=== PATIENT | female | born 1990 | race American Indian/Alaskan Native ===

== ENCOUNTER 2016-08-24 00:14 | Emergency (ER) | payer MEDICAID, OTHER ==
[2016-08-24] MEDS ORDERED: PROVENTIL IH ONE ×2 (00:44→00:49)
[2016-08-24] MEDS ORDERED: ATROVENT IH ONE ×2 (00:44→00:49)
[2016-08-24] MEDS ORDERED: DUONEB 0.5 MG-3 MG/3 ML SOLN IH ONE ×3 (07:40→09:32)
[2016-08-24] MEDS ORDERED: DELTASONE PO ONE (07:42)
[2016-08-24] MEDS ORDERED: MAGNESIUM SULFATE 2GM/50ML 2 GM/50 ML BAG IV ONE (09:31)
[2016-08-24] MEDS ORDERED: VALIUM IV ONE (09:31)
[2016-08-24] MEDS ORDERED: DECADRON IV ONE (09:32)
--- NOTE | 2016-08-24 09:33 | Emergency Department Report ---
HPI - General Chief Complaint: Dyspnea/Respdistress Time Seen by Provider: 08/24/16 08:46 - HPI HPI: The patient's 26-year-old female who presents for evaluation of dyspnea. The patient has a history of asthma. The patient reports progressive and constant dyspnea since yesterday morning, 25 hours ago, severe since last night, and is exacerbated with lying flat, exertion, or physical activity. The patient denies fever, chest pain, CP, hemoptysis, unilateral leg swelling, oral contraceptive use, recent immobilization, history of DVT or PE, hx cancer. ED Past Medical Hx - Past Medical History Hx Hypertension: No Hx Heart Attack/AMI: No Hx Congestive Heart Failure: No Hx Diabetes: Yes (since age 15 (2007)) Hx Deep Vein Thrombosis: No Hx Liver Disease: No Hx Renal Disease: No Hx Sickle Cell Disease: No Hx Seizures: No Hx Asthma: Yes (last attack about 4 months ago) Hx COPD: No Hx HIV: No - Surgical History Past Surgical History?: Yes Additional Surgical History: - Social History Smoking Status: Current Every Day Smoker Substance Use Type: None - Medications Home Medications: Home Medications Medication Instructions Recorded Confirmed Last Taken Type ALBUTEROL Inhaler [ProAir HFA 2 puff IH QID PRN #1 inhalation 08/24/16 Unknown Rx Inhaler] Prednisone [predniSONE 10 mg 10 mg PO .TAPER #1 tab.ds.pk 08/24/16 Unknown Rx (6-Day Pack, 21 Tabs)] ED Review of Systems ROS: Stated complaint: DIFFICULTY BREATHING Other details as noted in HPI Constitutional: denies: fever ENT: denies: throat or neck pain Respiratory: reports shortness of breath Cardiovascular: denies: chest pain Endocrine: denies unexplained weight loss or gain Gastrointestinal: denies: abdominal pain, nausea Genitourinary: denies: dysuria Musculoskeletal: denies: leg swelling Skin: denies: rash Neurological: denies: headache Hematological/Lymphatic: denies: easy bleeding or easy bruising Psych: denies sadness or hopelessness Physical Exam - Physical Exam Vital Signs: Vital Signs 08/24/16 08/24/16 08/24/16 00:27 00:51 07:36 Temperature 98.4 F Pulse Rate 103 H 90 Pulse Rate [ 94 H Throughout] Respiratory 22 18 Rate Respiratory 20 Rate [ Throughout] Blood Pressure 109/75 Blood Pressure 120/76 [Right] O2 Sat by Pulse 99 100 Oximetry 08/24/16 08/24/16 08:12 08:15 Temperature Pulse Rate 74 Pulse Rate [ 93 H Throughout] Respiratory 18 Rate Respiratory 18 Rate [ Throughout] Blood Pressure Blood Pressure 110/67 [Right] O2 Sat by Pulse 98 Oximetry Physical Exam: General: well-nourished, well-developed, no acute distress Head: Normocephalic, atraumatic Eyes: normal sclera ENT: Mucous membranes are pink and moist Neck: trachea midline, neck supple, No neck stiffness, no cervical adenopathy Respiratory: Diminished breath sounds and wheezing present throughout lung robison bilaterally, no costal retractions, no respiratory distress Cardio: S1 and S2 present, no murmurs, rubs, gallops, capillary refill is brisk Abdomen: Normoactive bowel sounds, soft abdomen, no rigidity, no guarding or rebound tenderness Chest WALL/Back: No tenderness to palpation of the chest wall, no CVA tenderness with percussion Musc: No pitting edema Skin: No rash Neuro: no facial drooping, normal speech Psych: Normal affect ED Course Vital Signs 08/24/16 08/24/16 08/24/16 00:27 00:51 07:36 Temperature 98.4 F Pulse Rate 103 H 90 Pulse Rate [ 94 H Throughout] Respiratory 22 18 Rate Respiratory 20 Rate [ Throughout] Blood Pressure 109/75 Blood Pressure 120/76 [Right] O2 Sat by Pulse 99 100 Oximetry 08/24/16 08/24/16 08:12 08:15 Temperature Pulse Rate 74 Pulse Rate [ 93 H Throughout] Respiratory 18 Rate Respiratory 18 Rate [ Throughout] Blood Pressure Blood Pressure 110/67 [Right] O2 Sat by Pulse 98 Oximetry ED Medical Decision Making - Medical Decision Making The patient was seen and examined by myself. The patient is placed on a jewelry coater and continuous pulse ox. On initial evaluation, the patient was found to be in no distress. Evaluation orders were placed. The patient is given multiple duoneb breathing treatments, IV magnesium, and IV Decadron for treatment of asthma. The patient was reevaluated and reported that their symptoms were improved. On reexamination the patient is found to have normal respiratory rate, O2 sat on pulse oximetry, with no costal retractions, and minimal wheezing on auscultation. The patient is stable for discharge with outpatient follow-up. The patient is given follow-up and return instructions. The patient expressed understanding and agreed with the plan. The patient is discharged in stable condition. Critical care attestation.: If time is entered above; I have spent that time in minutes in the direct care of this critically ill patient, excluding procedure time. ED Disposition Clinical Impression: Asthma with acute exacerbation in adult Disposition: DISCHARGED TO HOME OR SELFCARE Is pt being admited?: No Does the pt Need Aspirin: No Condition: Stable Instructions: Asthma (ED) Prescriptions: ALBUTEROL Inhaler [ProAir HFA Inhaler] 2 puff IH QID PRN #1 inhalation PRN Reason: Shortness Of Breath Prednisone [predniSONE 10 mg (6-Day Pack, 21 Tabs)] 10 mg PO .TAPER #1 tab.all Referrals: PRIMARY CARE, [Primary Care Provider] - 3-5 Days Time of Disposition: 09:33
[2016-08-24 13:02] VITALS: BP 110/63
== END 2016-08-24 10:28 | disposition home or self-care (01) ==
LOC: ED 00:14
DX: J45.901 Unspecified asthma with (acute) exacerbation (principal); E11.9 Type 2 diabetes mellitus without complications; J45.909 Unspecified asthma, uncomplicated; F17.200 Nicotine dependence, unspecified, uncomplicated
CPT/HCPCS: 94640; 96365; 96375; 99284; J1100; J3360; J3475; J7512

== ENCOUNTER 2017-11-02 22:39 | Emergency (ER) | payer OTHER ==
[2017-11-03 00:31] VITALS: BP 119/70
[2017-11-03] MEDS ORDERED: PROVENTIL IH ONE ×2 (00:31→00:34)
--- NOTE | 2017-11-03 01:36 | XRay Report ---
FINAL REPORT EXAM: XR CHEST ROUTINE 2V HISTORY: Shortness of breath TECHNIQUE: PA and lateral views of the chest were submitted. FINDINGS: The heart size and mediastinum appear normal. The lungs are clear. Pleural fluid is not seen. The bones soft tissues do not show any acute changes. IMPRESSION: No active chest disease.
[2017-11-03 01:42] LABS: Hemoglobin 9.6 gm/dl (10.1-14.3); Red Blood Count 5.23 M/mm3 (3.65-5.03)
[2017-11-03 01:43] LABS: Mean Corpuscular Hemoglobin 18 pg (28-32); Mean Corpuscular Volume 64 fl (79-97)
[2017-11-03 01:44] LABS: Mean Corpuscular HGB Conc 29 % (30-34); Platelet Count 245 K/mm3 (140-440); Red Cell Distribution Width 18.7 % (13.2-15.2)
[2017-11-03 01:50] LABS: BUN/Creatinine Ratio 20; Blood Urea Nitrogen 14 mg/dL (7-17); Hemolysis Index 16
[2017-11-03] MEDS ORDERED: NORCO 5/325 PO ONE (03:20)
[2017-11-03] MEDS ORDERED: DELTASONE PO ONE (03:21)
--- NOTE | 2017-11-03 03:26 | Emergency Department Report ---
ED Chest Pain HPI - General Chief Complaint: Adult Asthma Stated Complaint: NANETTE Time Seen by Provider: 11/03/17 03:02 Source: patient Mode of arrival: Stretcher Limitations: No Limitations - History of Present Illness Initial Comments: Ms. Villela is a 27-year-old female with history of asthma. Since she has had sharp stabbing chest pain. Chest pain became worse after running from a pit bull in her neighborhood. Chest pain has been present for a total of 12+ hours. Sharp stabbing central chest pain. No change with movement or inspiration. No fever. No wheezing. No cough. She uses an inhaler without any relief. Gradual onset of chest pain. Has been persistent. No tobacco abuse. No use of oral contraceptives. - Related Data Previous Rx's Medication Instructions Recorded Last Taken Type ALBUTEROL Inhaler [ProAir HFA 2 puff IH QID PRN #1 inhalation 08/24/16 Unknown Rx Inhaler] Prednisone [predniSONE 10 mg 10 mg PO .TAPER #1 tab.ds.pk 08/24/16 Unknown Rx (6-Day Pack, 21 Tabs)] ALBUTEROL Inhaler [ProAir HFA 2 puff IH QID PRN #1 inhalation 11/03/17 Unknown Rx Inhaler] HYDROcodone/APAP 5-325 [[place] 1 each PO Q6HR PRN #10 tablet 11/03/17 Unknown Rx 5/325] Prednisone [predniSONE 10 mg 10 mg PO .TAPER #1 tab.ds.pk 11/03/17 Unknown Rx (6-Day Pack, 21 Tabs)] Allergies Allergy/AdvReac Type Severity Reaction Status Date / Time codeine Allergy Hives Verified 01/31/15 19:38 Heart Score - HEART Score History: Slightly suspicious EKG: Normal Age: < 45 Risk factors: No known risk factors Troponin: < normal limit HEART Score: 0 ED Review of Systems ROS: Stated complaint: NANETTE Other details as noted in HPI Comment: All other systems reviewed and negative Constitutional: denies: fever, malaise Respiratory: denies: cough Cardiovascular: chest pain ED Past Medical Hx - Past Medical History Hx Hypertension: No Hx Heart Attack/AMI: No Hx Congestive Heart Failure: No Hx Diabetes: Yes (since age 15 (2007)) Hx Deep Vein Thrombosis: No Hx Liver Disease: No Hx Renal Disease: No Hx Sickle Cell Disease: No Hx Seizures: No Hx Asthma: Yes (last attack about 4 months ago) Hx COPD: No Hx HIV: No - Surgical History Additional Surgical History: , Ectopic - Social History Smoking Status: Never Smoker Substance Use Type: None - Medications Home Medications: Home Medications Medication Instructions Recorded Confirmed Last Taken Type ALBUTEROL Inhaler [ProAir HFA 2 puff IH QID PRN #1 inhalation 08/24/16 Unknown Rx Inhaler] Prednisone [predniSONE 10 mg 10 mg PO .TAPER #1 tab.ds.pk 08/24/16 Unknown Rx (6-Day Pack, 21 Tabs)] ALBUTEROL Inhaler [ProAir HFA 2 puff IH QID PRN #1 inhalation 11/03/17 Unknown Rx Inhaler] HYDROcodone/APAP 5-325 [[place] 1 each PO Q6HR PRN #10 tablet 11/03/17 Unknown Rx 5/325] Prednisone [predniSONE 10 mg 10 mg PO .TAPER #1 tab.ds.pk 11/03/17 Unknown Rx (6-Day Pack, 21 Tabs)] ED Physical Exam - General Limitations: No Limitations General appearance: alert, in no apparent distress - Head Head exam: Present: atraumatic, normocephalic - Eye Eye exam: Present: normal appearance - ENT ENT exam: Present: mucous membranes moist - Neck Neck exam: Present: normal inspection - Respiratory Respiratory exam: Present: normal lung sounds bilaterally. Absent: respiratory distress, wheezes, rales, rhonchi - Cardiovascular Cardiovascular Exam: Present: regular rate, normal rhythm, normal heart sounds. Absent: systolic murmur, diastolic murmur, rubs, gallop - GI/Abdominal GI/Abdominal exam: Present: soft, normal bowel sounds. Absent: distended, tenderness, guarding, rebound (patient appears comfortable laying on her left side.) - Extremities Exam Extremities exam: Present: normal inspection - Back Exam Back exam: Present: normal inspection - Neurological Exam Neurological exam: Present: alert, oriented X3 - Psychiatric Psychiatric exam: Present: normal affect, normal mood - Skin Skin exam: Present: warm, dry, intact, normal color. Absent: rash ED Course Vital Signs 11/03/17 00:23 Temperature 97.5 F L Pulse Rate 75 Respiratory 18 Rate Blood Pressure 119/70 O2 Sat by Pulse 100 Oximetry ED Medical Decision Making - Lab Data Result diagrams: 11/03/17 01:09 11/03/17 01:09 Laboratory Results - last 24 hr 11/03/17 11/03/17 11/03/17 01:09 01:09 01:09 WBC 7.6 RBC 5.23 H Hgb 9.6 L Hct 32.0 MCV 64 L MCH 18 L MCHC 29 L RDW 18.7 H Plt Count 245 Sodium 140 Potassium 3.6 Chloride 101.3 Carbon Dioxide 23 Anion Gap 19 BUN 14 Creatinine 0.7 Estimated GFR > 60 BUN/Creatinine Ratio 20 Glucose 104 H Calcium 9.0 Troponin T < 0.010 HCG, Qual Negative Vital Signs - 24 hr 11/03/17 00:23 Temperature 97.5 F L Pulse Rate 75 Respiratory 18 Rate Blood Pressure 119/70 O2 Sat by Pulse 100 Oximetry - Radiology Data Radiology results: report reviewed - Medical Decision Making Ms. Villela presents with chest pain shortness of breath. She is PERC negative. No indication of pericarditis. No indication for pneumothorax. I suspect acute asthma exacerbation is causing pain. Prescribed albuterol prednisone [place]. She was given return precautions. EKG interpretation NSR nl rate nl axis nl intervals no ST-T signs of ischemia no ST elevation time obtained 2224 rate 80 beats a minute Critical care attestation.: If time is entered above; I have spent that time in minutes in the direct care of this critically ill patient, excluding procedure time. ED Disposition Clinical Impression: Acute asthma exacerbation, Chest pain Disposition: - TO HOME OR SELFCARE Is pt being admited?: No Does the pt Need Aspirin: No Condition: Stable Instructions: Chest Pain (ED), Asthma (ED) Prescriptions: ALBUTEROL Inhaler [ProAir HFA Inhaler] 2 puff IH QID PRN #1 inhalation PRN Reason: Shortness Of Breath HYDROcodone/APAP 5-325 [[place] 5/325] 1 each PO Q6HR PRN #10 tablet PRN Reason: Pain Prednisone [predniSONE 10 mg (6-Day Pack, 21 Tabs)] 10 mg PO .TAPER #1 tab.ds.pk Referrals: [facility] [Outside] - 3-5 Days Forms: Work/School Release Form(ED) Time of Disposition: 03:29
[2017-11-03 03:54] LABS: Anisocytosis 1+; Band Neutrophils # (Manual) 0.4 K/mm3; Basophils % (Manual) 0 % (0.0-1.8); Eosinophils % (Manual) 0 % (0.0-4.3); Hypochromasia 2+; Ovalocytes 1+; Total Cells Counted 100
[2017-11-03 03:55] LABS: Tear Drop Cells Few
== END 2017-11-03 03:49 | disposition home or self-care (01) ==
LOC: ED 22:39
DX: J45.901 Unspecified asthma with (acute) exacerbation (principal); R07.89 Other chest pain; Z88.5 Allergy status to narcotic agent
CPT/HCPCS: 36415; 71046; 80048; 84484; 84703; 85007; 85025; 93005; 93010; 99284; J7512

== ENCOUNTER 2018-01-06 10:10 | Emergency (ER) | payer OTHER ==
[2018-01-06 10:30] VITALS: BP 115/61
== END 2018-01-06 11:00 | disposition left against medical advice (07) ==
LOC: ED 10:10
DX: O26.891 Other specified pregnancy related conditions, first trimester (principal); R10.9 Unspecified abdominal pain; Z88.5 Allergy status to narcotic agent; J45.909 Unspecified asthma, uncomplicated; E11.9 Type 2 diabetes mellitus without complications; Z3A.13 13 weeks gestation of pregnancy; Z53.21 Procedure and treatment not carried out due to patient leaving prior to being seen by health care provider

== ENCOUNTER 2020-01-27 17:21 | Emergency (ER) | payer SELFPAY ==
[2020-01-27 18:36] VITALS: BP 124/74
== END 2020-01-27 20:02 | disposition left against medical advice (07) ==
LOC: ED 17:21
DX: R07.89 Other chest pain (principal); R06.02 Shortness of breath; Z53.21 Procedure and treatment not carried out due to patient leaving prior to being seen by health care provider

== ENCOUNTER 2020-03-10 04:51 | Emergency (ER) | payer SELFPAY ==
[2020-03-10 06:15] LABS: Hematocrit 24.9 % (30.3-42.9); Hemoglobin 8.1 gm/dl (10.1-14.3); Mean Corpuscular Volume 64 fl (79-97)
[2020-03-10 06:16] LABS: Mean Corpuscular HGB Conc 33 % (30-34); Platelet Count 221 K/mm3 (140-440); Red Cell Distribution Width 19.9 % (13.2-15.2)
[2020-03-10 06:22] LABS: BUN/Creatinine Ratio 7; Blood Urea Nitrogen 6 mg/dL (7-17); Calcium 9.1 mg/dL (8.4-10.2); Hemolysis Index 0
[2020-03-10 06:23] LABS: INR 1.04 (0.87-1.13)
[2020-03-10 06:29] LABS: Partial Thromboplastin Time 25.2 Sec. (24.2-36.6)
[2020-03-10] MEDS ORDERED: SODIUM CHLORIDE 0.9% 1000 ML 1,000 ML IV ONE ×2 (06:52→08:14)
--- NOTE | 2020-03-10 06:56 | Emergency Department Report ---
ED Chest Pain HPI - General Chief Complaint: Chest Pain Stated Complaint: CP Time Seen by Provider: 03/10/20 06:27 Source: patient, EMS Mode of arrival: Stretcher Limitations: No Limitations - History of Present Illness Initial Comments: This is a 29-year-old -[place] female presents to the emergency department with complaint of midsternal chest tightness and shortness of breath that started about 30 minutes to 1 hour prior to arrival. The patient says that she was sitting on her bed when the symptoms began. She denies any fever, nausea, vomiting, coughing, wheezing. The chest tightness is nonradiating. It is worse with inhalation and with touching her chest. The patient was recently diagnosed with a DVT in the right leg and says that she is on Coumadin and has been compliant with her medication. Her primary care physician is Dr. Melchor. She denies any tobacco or illicit drug use. She denies any other past medical history but appears to have a history of anemia. She has not taken anything for symptoms prior to presentation today. - Related Data Home Medications Medication Instructions Recorded Confirmed Last Taken Insulin NPH Human Isophane 14 units SQ QHS 07/03/18 07/03/18 07/02/18 21:15 [Humulin N] Insulin Regular, Human [Humulin R] 10 units SQ QAMDIAB 07/03/18 07/03/18 08:30 Pnv No.95/Ferrous Fum/Folic AC 1 tab PO QDAY 07/03/18 07/03/18 07/02/18 08:00 [ Vitamins Tablet] Previous Rx's Medication Instructions Recorded Last Taken Type Albuterol Mdi (or & Nicu Only) 2 puff IH QID PRN #1 inhalation 08/24/16 4 Months Ago Rx [ProAir HFA Inhaler] ~03/03/18 Ferrous Sulfate [Feosol 325 MG tab] 325 mg PO BID #60 tablet 07/03/18 Unknown Rx HYDROcodone/APAP 5-325 [[place] 1 each PO Q6HR PRN #30 tablet 07/03/18 Unknown Rx 5/325] Ibuprofen [Motrin] 800 mg PO Q8HR PRN #30 tablet 07/03/18 Unknown Rx Pnv No.95/Ferrous Fum/Folic AC 1 each PO DAILY #30 tablet 07/03/18 Unknown Rx [Prenavite Tablet] Sennosides/Docusate [Senokot S] 1 each PO Q12HR #14 tab 07/10/18 Unknown Rx Apixaban [Eliquis starter pack] 5 mg PO BID #74 tab.ds.pk 03/10/20 Unknown Rx Allergies Allergy/AdvReac Type Severity Reaction Status Date / Time codeine Allergy Hives Verified 01/31/15 19:38 Heart Score - HEART Score History: Slightly suspicious EKG: Normal Age: < 45 Risk factors: 1-2 risk factors Troponin: < normal limit HEART Score: 1 - Critical Actions Critical Actions: 0-3 pts:0.9-1.7%risk of adverse cardiac event.Candidate for discharge ED Review of Systems ROS: Stated complaint: CP Other details as noted in HPI Comment: All other systems reviewed and negative Constitutional: denies: chills, fever Eyes: denies: eye pain, vision change ENT: denies: ear pain, throat pain Respiratory: shortness of breath. denies: cough Cardiovascular: chest pain. denies: palpitations Gastrointestinal: denies: abdominal pain, vomiting Genitourinary: denies: dysuria, discharge Musculoskeletal: denies: back pain, arthralgia Skin: denies: rash, lesions Neurological: denies: headache, weakness ED Past Medical Hx - Past Medical History Previous Medical History?: Yes Hx Hypertension: No Hx Heart Attack/AMI: No Hx Congestive Heart Failure: No Hx Diabetes: Yes Hx Deep Vein Thrombosis: Yes (right knee) Hx Liver Disease: No Hx Renal Disease: No Hx Sickle Cell Disease: No Hx Seizures: No Hx Asthma: Yes (more seasonal) Hx COPD: No Hx HIV: No Additional medical history: anemia - Surgical History Past Surgical History?: Yes Additional Surgical History: x2. , Ectopic - Social History Smoking Status: Never Smoker Substance Use Type: None - Medications Home Medications: Home Medications Medication Instructions Recorded Confirmed Last Taken Type Albuterol Mdi (or & Nicu Only) 2 puff IH QID PRN #1 inhalation 08/24/16 07/03/18 4 Months Ago Rx [ProAir HFA Inhaler] ~03/03/18 Ferrous Sulfate [Feosol 325 MG tab] 325 mg PO BID #60 tablet 07/03/18 Unknown Rx HYDROcodone/APAP 5-325 [[place] 1 each PO Q6HR PRN #30 tablet 07/03/18 Unknown Rx 5/325] Ibuprofen [Motrin] 800 mg PO Q8HR PRN #30 tablet 07/03/18 Unknown Rx Insulin NPH Human Isophane 14 units SQ QHS 07/03/18 07/03/18 07/02/18 21:15 History [Humulin N] Insulin Regular, Human [Humulin R] 10 units SQ QAMDIAB 07/03/18 07/03/18 07/02/18 08:30 History Pnv No.95/Ferrous Fum/Folic AC 1 tab PO QDAY 07/03/18 07/03/18 07/02/18 08:00 History [ Vitamins Tablet] Pnv No.95/Ferrous Fum/Folic AC 1 each PO DAILY #30 tablet 07/03/18 Unknown Rx [Prenavite Tablet] Sennosides/Docusate [Senokot S] 1 each PO Q12HR #14 tab 07/10/18 Unknown Rx Apixaban [Eliquis starter pack] 5 mg PO BID #74 tab.ds.pk 03/10/20 Unknown Rx ED Physical Exam - General Limitations: No Limitations - Other Other exam information: GENERAL: The patient is well-developed well-nourished. HENT: Normocephalic. Atraumatic. Patient has moist mucous membranes. EYES: Extraocular motions are intact. NECK: Supple. Trachea is midline. CHEST/LUNGS: Clear to auscultation. There is no respiratory distress noted. There is some reproducible tenderness to palpation to the midsternal chest wall. No crepitus or deformity. HEART/CARDIOVASCULAR: Regular. There is no tachycardia. There is no murmur. ABDOMEN: Abdomen is soft, nontender. Patient has normal bowel sounds. Obese habitus. SKIN: Skin is warm and dry. NEURO: The patient is awake, alert, and oriented. The patient is cooperative. Normal speech. MUSCULOSKELETAL: There is no tenderness or deformity. There is no limitation range of motion. ED Course Vital Signs 03/10/20 03/10/20 03/10/20 05:10 05:15 05:30 Temperature 98.2 F 98.6 F Pulse Rate 96 H 96 H 95 H Respiratory 18 13 15 Rate Blood Pressure 109/71 105/61 Blood Pressure 104/71 [Left] O2 Sat by Pulse 99 99 98 Oximetry 03/10/20 03/10/20 03/10/20 06:00 06:30 07:00 Temperature Pulse Rate 127 H 80 78 Respiratory 14 18 17 Rate Blood Pressure 102/69 103/55 92/47 Blood Pressure [Left] O2 Sat by Pulse 100 96 Oximetry 03/10/20 03/10/20 07:15 07:30 Temperature Pulse Rate 72 77 Respiratory 16 17 Rate Blood Pressure 98/53 95/53 Blood Pressure [Left] O2 Sat by Pulse Oximetry TREVOR score - Trevor Score Age > 65: (0) No Aspirin use within the Past 7 Days: (0) No 3 or more CAD Risk Factors: (0) No 2 or more Angina events in past 24 hrs: (1) Yes Known CAD with more than 50% Stenosis: (0) No Elevated Cardiac Markers: (0) No ST Deviation Greater than 0.5mm: (0) No TREVOR Score: 1 ED Medical Decision Making - Lab Data Result diagrams: 03/10/20 05:29 03/10/20 05:29 - EKG Data -: EKG Interpreted by Ia EKG shows normal: sinus rhythm, axis, intervals, QRS complexes, ST-T waves Rate: normal - EKG Data When compared to previous EKG there are: previous EKG unavailable Interpretation: normal EKG - Radiology Data Radiology results: report reviewed CTA CHEST WITH CONTRAST INDICATION / CLINICAL INFORMATION: CP, hx of recent DVT, not anticoagulated. TECHNIQUE: Axial CT images were obtained through the chest after injection of IV contrast. 3 plane MIP and/or 3D reconstructions were produced. All CT scans at this location are performed using CT dose reduction for ALARA by means of automated exposure control. COMPARISON: Radiograph from earlier today. FINDINGS: PULMONARY ARTERIES: No pulmonary emboli. There is enlargement of the main pulmonary artery, which measures up to 3.4 cm in diameter. THORACIC AORTA: No significant abnormality. HEART: No significant abnormality. CORONARY ARTERIES: No significant calcification. MEDIASTINUM / ALEKSANDR: No significant abnormality. PLEURA: No pleural effusion. No pneumothorax. LUNGS: No acute air space or interstitial disease. ADDITIONAL FINDINGS: None. UPPER ABDOMEN: No acute findings. SKELETAL STRUCTURES: No significant osseous abnormality. IMPRESSION: 1. No CT evidence for pulmonary embolism. 2. Enlargement of the main pulmonary artery, measuring up to 3.4 cm in diameter. 3. No acute findings. - Medical Decision Making This patient presented to the emergency department with complaint of shortness of breath and some chest discomfort this morning while sitting on her bed. On examination heart and lungs are normal to auscultation and the patient does not appear in any respiratory or acute distress. EKG did not have any morphology consistent with ST elevation [place] or any dysrhythmia. Chest x-ray did not show any pneumonia, pleural effusions, pneumothorax, focal consolidation, or any other acute process. Patient's labs have been unremarkable including CBC, metabolic panel and negative troponins x2. However the patient is allegedly on Coumadin but has an INR of 1. With her recent diagnosis of DVT, the subtherapeutic INR, and current complaints of chest pain and shortness of breath, a CT angiography of the chest was performed. It resulted as negative for any pulmonary embolism or any other acute process. The patient was started on Eliquis instead of the Coumadin. She was given a coupon to make this medication cheaper for her for the first month. She was instructed to discontinue the Coumadin. She will follow-up with her primary care physician regarding anticoagulation and for general follow-up. Her contact information has been sent over to the [facility], and someone from their office should be contacting her shortly for close outpatient follow-up as per our hospitals low risk chest pain protocol. Critical Care Time: No Critical care attestation.: If time is entered above; I have spent that time in minutes in the direct care of this critically ill patient, excluding procedure time. ED Disposition Clinical Impression: Atypical chest pain, History of DVT (deep vein thrombosis), Subtherapeutic international normalized ratio (INR) Disposition: DC- TO HOME OR SELFCARE Is pt being admited?: No Condition: Stable Instructions: Apixaban (By mouth), Chest Pain (ED) Additional Instructions: Please follow-up with your primary care physician in the next few days regarding follow-up for your chest pain and regarding your anticoagulation. Since your Coumadin level was essentially negative despite alleged compliance, I am starting you on a different medication for anticoagulation for treatment of your recent DVT. This medication is taken at 10 mg by mouth twice daily for 7 days and then you begin taking 5 mg by mouth twice daily. I have given you a coupon to bring to the pharmacy to make this medication cheaper for you. With the Eliquis, as with Coumadin, this is a blood thinner and therefore you have increased risk of bleeding. Please try to take any possible precautions. Stop taking the Coumadin as you do not want to take both of these medications. I am sending your contact information to [facility], and someone from their office should be contacting you shortly for close outpatient follow-up regarding your chest pain. Return to the emergency department with any worsening of your symptoms or with any acute distress. Prescriptions: Apixaban [Eliquis starter pack] 5 mg PO BID #74 tab.ds.pk Referrals: [facility] [Provider Group] - 2-3 Days PRIMARY CARE,MD [Primary Care Provider] - 2-3 Days Time of Disposition: 09:54
[2020-03-10 07:02] LABS: Basophils % (Manual) 0 % (0.0-1.8); Eosinophils % (Manual) 0 % (0.0-4.3); Hypochromasia 2+; Total Cells Counted 100
[2020-03-10 07:03] LABS: Anisocytosis 1+; Ovalocytes 1+; Platelet Estimate Consistent w Auto
--- NOTE | 2020-03-10 07:05 | XRay Report ---
CHEST 1 VIEW INDICATION: Chest Pain. COMPARISON: 11/03/2017. FINDINGS: Support devices: None. Heart: Mild cardiac enlargement. Lungs/Pleura: No acute air space or interstitial disease. Additional findings: None. IMPRESSION: Mild cardiac enlargement. Signer Name: Dylan Liu MD Signed: 03/10/2020 7:00 AM Workstation Name: [email or web address]
[2020-03-10 07:06] LABS: Basophils # (Auto) 0.1 K/mm3 (0.0-0.1); Eosinophils % (Auto) 0.4 % (0.0-4.3); Monocytes # (Auto) 0.8 K/mm3 (0.0-0.8)
[2020-03-10 07:37] VITALS: BP 95/53
[2020-03-10] MEDS ORDERED: KETOROLAC 30 MG/1 ML INJ IV ONE (08:20)
[2020-03-10] MEDS ORDERED: diphenhydrAMINE 50 MG/ML VIAL IV ONE (08:42)
[2020-03-10] MEDS ORDERED: diphenhydrAMINE 50 MG/ML VIAL ONE (08:44)
--- NOTE | 2020-03-10 09:31 | Cat Scan Report ---
CTA CHEST WITH CONTRAST INDICATION / CLINICAL INFORMATION: CP, hx of recent DVT, not anticoagulated. TECHNIQUE: Axial CT images were obtained through the chest after injection of IV contrast. 3 plane MIP and/or 3D reconstructions were produced. All CT scans at this location are performed using CT dose reduction f or ALARA by means of automated exposure control. COMPARISON: Radiograph from earlier today. FINDINGS: PULMONARY ARTERIES: No pulmonary emboli. There is enlargement of the main pulmonary artery, which tomeka sures up to 3.4 cm in diameter. THORACIC AORTA: No significant abnormality. HEART: No significant abnormality. CORONARY ARTERIES: No significant calcification. MEDIASTINUM / ALEKSANDR: No significant abnormality. PLEURA: No pleural effusion. No pneumothorax. LUNGS: No acute air space or interstitial disease. ADDITIONAL FINDINGS: None. UPPER ABDOMEN: No acute findings. SKELETAL STRUCTURES: No significant osseous abnormality. IMPRESSION: 1. No CT evidence for pulmonary embolism. 2. Enlargement of the main pulmonary artery, measuring up to 3.4 cm in diameter. 3. No acute findings. Signer Name: Vaughn Dixon MD Signed: 03/10/2020 9:27 AM Workstation Name: [id number]
[2020-03-10] MEDS ORDERED: APIXABAN 5 MG TAB PO ONE (09:39)
== END 2020-03-10 10:53 | disposition home or self-care (01) ==
LOC: ED 04:51
DX: R07.89 Other chest pain (principal); R79.1 Abnormal coagulation profile; E11.9 Type 2 diabetes mellitus without complications; J45.909 Unspecified asthma, uncomplicated; D64.9 Anemia, unspecified; Z98.890 Other specified postprocedural states; Z88.6 Allergy status to analgesic agent; Z79.899 Other long term (current) drug therapy; Z86.718 Personal history of other venous thrombosis and embolism
CPT/HCPCS: 36415; 71045; 71275; 80048; 84484; 84703; 85007; 85025; 85610; 85730; 93005; 96361; 96374; 96375; 99285; J1200; J1885; J7030; Q9967

== ENCOUNTER 2020-03-10 20:31 | Emergency (ER) | payer MEDICAID ==
--- NOTE | 2020-03-10 21:53 | XRay Report ---
CHEST 2 VIEWS INDICATION / CLINICAL INFORMATION: Chest Pain. COMPARISON: Chest x-ray 03/10/2020 FINDINGS: SUPPORT DEVICES: None. HEART / MEDIASTINUM: No significant abnormality. LUNGS / PLEURA: No significant pulmonary or pleural abnormality. No pneumothorax. ADDITIONAL FINDINGS: No significant additional findings. IMPRESSION: 1. No acute findings. Signer Name: Timbo Sims MD Signed: 03/10/2020 9:49 PM Workstation Name: [id number]
[2020-03-10 22:00] LABS: Mean Corpuscular HGB Conc 28 % (30-34); Red Blood Count 4.77 M/mm3 (3.65-5.03)
[2020-03-10 22:12] LABS: Hematocrit 30.9 % (30.3-42.9); Hemoglobin 8.5 gm/dl (10.1-14.3); Mean Corpuscular Volume 65 fl (79-97); Platelet Count 306 K/mm3 (140-440); Red Cell Distribution Width 20.3 % (13.2-15.2)
[2020-03-10 22:20] LABS: BUN/Creatinine Ratio 7; Blood Urea Nitrogen 7 mg/dL (7-17); Calcium 8.6 mg/dL (8.4-10.2); Hemolysis Index 0
[2020-03-10 22:58] LABS: Basophils % (Manual) 0 % (0.0-1.8); Platelet Estimate Consistent w Auto; Total Cells Counted 100
[2020-03-10 22:59] LABS: Anisocytosis 2+; Hypochromasia 1+; Ovalocytes 1+; Tear Drop Cells Few
[2020-03-10] MEDS ORDERED: ONDANSETRON 4 MG ODT TAB PO ONE (23:45)
[2020-03-10] MEDS ORDERED: HYDROcodone/ACETAMINOPHEN 10-325MG TAB PO ONE (23:45)
--- NOTE | 2020-03-10 23:49 | Emergency Department Report ---
ED General Adult HPI - General Chief complaint: Chest Pain Stated complaint: CHEST PAIN Time Seen by Provider: 03/10/20 21:35 Source: patient Mode of arrival: Wheelchair Limitations: No Limitations - History of Present Illness Initial comments: The patient presents to the emergency department the chief complaint of chest pain that started yesterday. Patient states she presented to this hospital yesterday was evaluated for chest pain and was sent home with Eliquis for DVT that was located in her left leg. Patient states that she was diagnosed with a DVT a week ago at [facility] and was started on Xarelto. Patient does endorse shortness of breath but denies abdominal pain. Patient states she was given Eliquis tablet this morning before being discharged. The patient states the chest pain is so intense she nearly passed out. -: Sudden Location: chest Radiation: non-radiation Severity scale (0 -10): 5 Quality: aching Consistency: constant Improves with: none Worsens with: none Associated Symptoms: denies other symptoms Treatments Prior to Arrival: none - Related Data Home Medications Medication Instructions Recorded Confirmed Last Taken Insulin NPH Human Isophane 14 units SQ QHS 07/03/18 07/03/18 07/02/18 21:15 [Humulin N] Insulin Regular, Human [Humulin R] 10 units SQ QAMDIAB 07/03/18 07/03/18 07/02/18 08:30 Pnv No.95/Ferrous Fum/Folic AC 1 tab PO QDAY 07/03/18 07/03/18 07/02/18 08:00 [ Vitamins Tablet] Previous Rx's Medication Instructions Recorded Last Taken Type Albuterol Mdi (or & Nicu Only) 2 puff IH QID PRN #1 inhalation 08/24/16 4 Months Ago Rx [ProAir HFA Inhaler] ~03/03/18 Ferrous Sulfate [Feosol 325 MG tab] 325 mg PO BID #60 tablet 07/03/18 Unknown Rx HYDROcodone/APAP 5-325 [[place] 1 each PO Q6HR PRN #30 tablet 07/03/18 Unknown Rx 5/325] Ibuprofen [Motrin] 800 mg PO Q8HR PRN #30 tablet 07/03/18 Unknown Rx Pnv No.95/Ferrous Fum/Folic AC 1 each PO DAILY #30 tablet 07/03/18 Unknown Rx [Prenavite Tablet] Sennosides/Docusate [Senokot S] 1 each PO Q12HR #14 tab 07/10/18 Unknown Rx Apixaban [Eliquis starter pack] 5 mg PO BID #74 tab.ds.pk 03/10/20 Unknown Rx Albuterol Mdi (or & Nicu Only) 2 puff IH Q4HR PRN #1 inhalation 03/11/20 Unknown Rx [ProAir HFA Inhaler] HYDROcodone/APAP 5-325 [[place] 1 each PO Q6HR PRN #12 tablet 03/11/20 Unknown Rx 5/325] Ibuprofen [Motrin] 800 mg PO Q8HR PRN #30 tablet 03/11/20 Unknown Rx Allergies Allergy/AdvReac Type Severity Reaction Status Date / Time codeine Allergy Hives Verified 01/31/15 19:38 ED Review of Systems ROS: Stated complaint: CHEST PAIN Other details as noted in HPI Constitutional: denies: chills, fever Eyes: denies: eye pain, eye discharge, vision change ENT: denies: ear pain, throat pain Respiratory: denies: cough, shortness of breath, wheezing Cardiovascular: chest pain. denies: palpitations Endocrine: no symptoms reported Gastrointestinal: denies: abdominal pain, nausea, diarrhea Genitourinary: denies: urgency, dysuria, discharge Musculoskeletal: denies: back pain, joint swelling, arthralgia Skin: denies: rash, lesions Neurological: denies: headache, weakness, paresthesias Psychiatric: denies: anxiety, depression Hematological/Lymphatic: denies: easy bleeding, easy bruising ED Past Medical Hx - Past Medical History Hx Hypertension: No Hx Heart Attack/AMI: No Hx Congestive Heart Failure: No Hx Diabetes: Yes Hx Deep Vein Thrombosis: Yes (right knee) Hx Liver Disease: No Hx Renal Disease: No Hx Sickle Cell Disease: No Hx Seizures: No Hx Asthma: Yes (more seasonal) Hx COPD: No Hx HIV: No Additional medical history: anemia - Surgical History Additional Surgical History: x2. , Ectopic - Social History Smoking Status: Never Smoker Substance Use Type: None - Medications Home Medications: Home Medications Medication Instructions Recorded Confirmed Last Taken Type Albuterol Mdi (or & Nicu Only) 2 puff IH QID PRN #1 inhalation 08/24/16 07/03/18 4 Months Ago Rx [ProAir HFA Inhaler] ~03/03/18 Ferrous Sulfate [Feosol 325 MG tab] 325 mg PO BID #60 tablet 07/03/18 Unknown Rx HYDROcodone/APAP 5-325 [[place] 1 each PO Q6HR PRN #30 tablet 07/03/18 Unknown Rx 5/325] Ibuprofen [Motrin] 800 mg PO Q8HR PRN #30 tablet 07/03/18 Unknown Rx Insulin NPH Human Isophane 14 units SQ QHS 07/03/18 07/03/18 07/02/18 21:15 History [Humulin N] Insulin Regular, Human [Humulin R] 10 units SQ QAMDIAB 07/03/18 07/03/18 07/02/18 08:30 History Pnv No.95/Ferrous Fum/Folic AC 1 tab PO QDAY 07/03/18 07/03/18 07/02/18 08:00 History [ Vitamins Tablet] Pnv No.95/Ferrous Fum/Folic AC 1 each PO DAILY #30 tablet 07/03/18 Unknown Rx [Prenavite Tablet] Sennosides/Docusate [Senokot S] 1 each PO Q12HR #14 tab 07/10/18 Unknown Rx Apixaban [Eliquis starter pack] 5 mg PO BID #74 tab.ds.pk 03/10/20 Unknown Rx Albuterol Mdi (or & Nicu Only) 2 puff IH Q4HR PRN #1 inhalation 03/11/20 Unknown Rx [ProAir HFA Inhaler] HYDROcodone/APAP 5-325 [[place] 1 each PO Q6HR PRN #12 tablet 03/11/20 Unknown Rx 5/325] Ibuprofen [Motrin] 800 mg PO Q8HR PRN #30 tablet 03/11/20 Unknown Rx ED Physical Exam - General Limitations: No Limitations General appearance: alert, in no apparent distress - Head Head exam: Present: atraumatic, normocephalic - Eye Eye exam: Present: normal appearance, PERRL, EOMI - ENT ENT exam: Present: mucous membranes moist - Neck Neck exam: Present: normal inspection - Respiratory Respiratory exam: Present: normal lung sounds bilaterally, chest wall tenderness. Absent: respiratory distress - Cardiovascular Cardiovascular Exam: Present: regular rate, normal rhythm. Absent: systolic murmur, diastolic murmur, rubs, gallop - GI/Abdominal GI/Abdominal exam: Present: soft, normal bowel sounds. Absent: distended, tenderness - Extremities Exam Extremities exam: Present: normal inspection - Back Exam Back exam: Present: normal inspection - Neurological Exam Neurological exam: Present: alert, oriented X3, CN II-XII intact. Absent: motor sensory deficit - Psychiatric Psychiatric exam: Present: normal affect, normal mood - Skin Skin exam: Present: warm, dry, intact, normal color. Absent: rash ED Course Vital Signs 03/10/20 03/10/20 03/10/20 20:33 22:00 22:30 Temperature 98.3 F 98.5 F Pulse Rate 101 H 86 83 Respiratory 18 14 15 Rate Blood Pressure 126/84 107/66 Blood Pressure 103/75 [Left] O2 Sat by Pulse 100 100 100 Oximetry 03/10/20 03/10/20 03/10/20 22:45 23:00 23:15 Temperature Pulse Rate 82 97 H 88 Respiratory 12 12 12 Rate Blood Pressure 115/76 115/87 127/77 Blood Pressure [Left] O2 Sat by Pulse 99 98 Oximetry 03/10/20 03/11/20 23:30 00:21 Temperature Pulse Rate 83 Respiratory 15 18 Rate Blood Pressure 115/73 Blood Pressure [Left] O2 Sat by Pulse 99 Oximetry ED Medical Decision Making - Lab Data Result diagrams: 03/10/20 21:40 03/10/20 21:40 Lab Results 03/10/20 03/10/20 Range/Units 21:40 21:40 WBC 7.4 (4.5-11.0) K/mm3 RBC 4.77 (3.65-5.03) M/mm3 Hgb 8.5 L (10.1-14.3) gm/dl Hct 30.9 D (30.3-42.9) % MCV 65 L (79-97) fl MCH 18 L (28-32) pg MCHC 28 L (30-34) % RDW 20.3 H (13.2-15.2) % Plt Count 306 (140-440) K/mm3 Add Manual Diff Complete Total Counted 100 Seg Neuts % (Manual) 49.0 (40.0-70.0) % Band Neutrophils % 0 % Lymphocytes % (Manual) 41.0 H (13.4-35.0) % Reactive Lymphs % (Man) 0 % Monocytes % (Manual) 9.0 H (0.0-7.3) % Eosinophils % (Manual) 1.0 (0.0-4.3) % Basophils % (Manual) 0 (0.0-1.8) % Metamyelocytes % 0 % Myelocytes % 0 % Promyelocytes % 0 % Blast Cells % 0 % Nucleated RBC % Not Reportable Seg Neutrophils # Man 3.6 (1.8-7.7) K/mm3 Band Neutrophils # 0.0 K/mm3 Lymphocytes # (Manual) 3.0 (1.2-5.4) K/mm3 Abs React Lymphs (Man) 0.0 K/mm3 Monocytes # (Manual) 0.7 (0.0-0.8) K/mm3 Eosinophils # (Manual) 0.1 (0.0-0.4) K/mm3 Basophils # (Manual) 0.0 (0.0-0.1) K/mm3 Metamyelocytes # 0.0 K/mm3 Myelocytes # 0.0 K/mm3 Promyelocytes # 0.0 K/mm3 Blast Cells # 0.0 K/mm3 WBC Morphology Not Reportable Hypersegmented Neuts Not Reportable Hyposegmented Neuts Not Reportable Hypogranular Neuts Not Reportable Smudge Cells Not Reportable Toxic Granulation Not Reportable Toxic Vacuolation Not Reportable Dohle Bodies Not Reportable Pelger-Huet Anomaly Not Reportable Venkatesh Rods Not Reportable Platelet Estimate Consistent w auto Clumped Platelets Not Reportable Plt Clumps, EDTA Not Reportable Large Platelets Not Reportable Giant Platelets Not Reportable Platelet Satelliting Not Reportable Plt Morphology Comment Not Reportable RBC Morphology Not Reportable Dimorphic RBCs Not Reportable Polychromasia Not Reportable Hypochromasia 1+ Poikilocytosis Not Reportable Anisocytosis 2+ Microcytosis Not Reportable Macrocytosis Not Reportable Spherocytes Not Reportable Pappenheimer Bodies Not Reportable Sickle Cells Not Reportable Target Cells Not Reportable Tear Drop Cells Few Ovalocytes 1+ Helmet Cells Not Reportable Rahman-[place] Bodies Not Reportable Oxbow Rings Not Reportable Rachel Cells Not Reportable Bite Cells Not Reportable Crenated Cell Not Reportable Elliptocytes Few Acanthocytes (Spur) Not Reportable Rouleaux Not Reportable Hemoglobin C Crystals Not Reportable Schistocytes Not Reportable Malaria parasites Not Reportable Bruce Bodies Not Reportable Hem Pathologist Commnt No Sodium 143 (137-145) mmol/L Potassium 3.6 (3.6-5.0) mmol/L Chloride 107.6 H (98-107) mmol/L Carbon Dioxide 21 L (22-30) mmol/L Anion Gap 18 mmol/L BUN 7 (7-17) mg/dL Creatinine 1.0 (0.6-1.2) mg/dL Estimated GFR > 60 ml/min BUN/Creatinine Ratio 7 % Glucose 91 (65-100) mg/dL Calcium 8.6 (8.4-10.2) mg/dL Troponin T < 0.010 (0.00-0.029) ng/mL - EKG Data -: EKG Interpreted by Me EKG shows normal: sinus rhythm Rate: normal - Radiology Data Radiology results: report reviewed - Medical Decision Making Reviewed the patient's CTA of her chest that was done earlier today which showed no pulmonary emboli or acute infectious process Discussed results with patient Critical care attestation.: If time is entered above; I have spent that time in minutes in the direct care of this critically ill patient, excluding procedure time. ED Disposition Clinical Impression: Pleurisy, Nonspecific chest pain Disposition: DC-01 TO HOME OR SELFCARE Is pt being admited?: No Does the pt Need Aspirin: No Condition: Stable Instructions: Chest Pain (ED), Pleurisy (ED) Additional Instructions: return if worse Referrals: PRIMARY MD LAUREN [Primary Care Provider] - 3-5 Days SEBASTIÁN QUINTERO MD [Staff Physician] - 3-5 Days Time of Disposition: 00:58
[2020-03-11 01:40] VITALS: BP 102/76
== END 2020-03-11 01:20 | disposition home or self-care (01) ==
LOC: ED 20:31
DX: R09.1 Pleurisy (principal); E11.9 Type 2 diabetes mellitus without complications; Z98.890 Other specified postprocedural states; Z79.4 Long term (current) use of insulin; Z79.899 Other long term (current) drug therapy; Z88.6 Allergy status to analgesic agent
CPT/HCPCS: 36415; 71046; 80048; 84484; 85007; 85025; 93005; Q0162

== ENCOUNTER 2020-03-17 20:30 | Emergency (ER) | payer MEDICAID ==
[2020-03-17 21:59] VITALS: BP 101/63
== END 2020-03-17 21:55 | disposition left against medical advice (07) ==
LOC: ED 20:30
DX: M79.605 Pain in left leg (principal); Z53.21 Procedure and treatment not carried out due to patient leaving prior to being seen by health care provider

== ENCOUNTER 2020-04-15 03:40 | Emergency (ER) | payer MEDICAID ==
[2020-04-15 04:48] VITALS: BP 98/61
[2020-04-15] MEDS ORDERED: IBUPROFEN 800 MG TAB PO ONE (05:12)
[2020-04-15] MEDS ORDERED: HYDROcodone/ACETAMINOPHEN 7.5-325MG TAB PO ONE (05:12)
[2020-04-15] MEDS ORDERED: ONDANSETRON 4 MG ODT TAB PO ONE (05:12)
--- NOTE | 2020-04-15 05:47 | XRay Report ---
LEFT KNEE 3 VIEWS INDICATION / CLINICAL INFORMATION: INJURY - PAIN. COMPARISON: None available. FINDINGS: No fracture or other skeletal abnormality. No significant joint effusion or hemarthrosis. Signer Name: Blaine Alves MD Signed: 04/15/2020 5:42 AM Workstation Name: [id number]
--- NOTE | 2020-04-15 05:57 | Emergency Department Report ---
ED Lower Extremity HPI - General Chief Complaint: Extremity Injury, Lower Stated Complaint: LEFT LEG PAIN Source: patient Mode of arrival: Wheelchair Limitations: No Limitations - History of Present Illness Initial Comments: Patient is a 30-year-old -[place] female with a history of morbid obesity, asthma, DVT and jnt-nxmqsci-hjuvbitjl diabetes who presents to the ED with complaint of acute onset worsening left knee pain after her 12-year-old son slipped and fell onto the left knee about 8 hours ago. Patient states that she had similar injury on the left knee about 3 weeks ago and was improving after being evaluated at another hospital but after this incident 8 hours ago the pain got worse. Patient states the pain is worse with any ambulation or palpation of the left knee. Patient denies dizziness, syncope, chest pain, shortness of breath, numbness and tingling or weakness of left leg, headache, back pain, or abdominal pain, fall, heavy lifting or traumatic injury. MD Complaint: knee injury (pain) -: Sudden, hour(s) (8) Injury: Knee: Left (pain) Type of Injury: blunt Place: home Severity: severe Severity scale (0 -10): 7 Improves With: nothing Context: direct blow Associated Symptoms: able to partially bear weight. denies: snap/pop sensation, swelling, numbness, tingling, unable to bear weight - Related Data Home Medications Medication Instructions Recorded Confirmed Last Taken Insulin NPH Human Isophane 14 units SQ QHS 07/03/18 07/03/18 07/02/18 21:15 [Humulin N] Insulin Regular, Human [Humulin R] 10 units SQ QAMDIAB 07/03/18 07/03/18 07/02/18 08:30 Pnv No.95/Ferrous Fum/Folic AC 1 tab PO QDAY 07/03/18 07/03/18 07/02/18 08:00 [ Vitamins Tablet] Previous Rx's Medication Instructions Recorded Last Taken Type Albuterol Mdi (or & Nicu Only) 2 puff IH QID PRN #1 inhalation 08/24/16 4 Months Ago Rx [ProAir HFA Inhaler] ~03/03/18 Ferrous Sulfate [Feosol 325 MG tab] 325 mg PO BID #60 tablet 07/03/18 Unknown Rx HYDROcodone/APAP 5-325 [[place] 1 each PO Q6HR PRN #30 tablet 07/03/18 Unknown Rx 5/325] Ibuprofen [Motrin] 800 mg PO Q8HR PRN #30 tablet 07/03/18 Unknown Rx Pnv No.95/Ferrous Fum/Folic AC 1 each PO DAILY #30 tablet 07/03/18 Unknown Rx [Prenavite Tablet] Sennosides/Docusate [Senokot S] 1 each PO Q12HR #14 tab 07/10/18 Unknown Rx Apixaban [Eliquis starter pack] 5 mg PO BID #74 tab.ds.pk 03/10/20 Unknown Rx Albuterol Mdi (or & Nicu Only) 2 puff IH Q4HR PRN #1 inhalation 03/11/20 Unknown Rx [ProAir HFA Inhaler] HYDROcodone/APAP 5-325 [[place] 1 each PO Q6HR PRN #12 tablet 03/11/20 Unknown Rx 5/325] Ibuprofen [Motrin] 800 mg PO Q8HR PRN #30 tablet 03/11/20 Unknown Rx Ibuprofen [Motrin] 800 mg PO Q8HR PRN #30 tablet 04/15/20 Unknown Rx Methocarbamol [Robaxin] 500 mg PO Q8H PRN #24 tablet 04/15/20 Unknown Rx traMADoL [Ultram] 50 mg PO Q6HR PRN #12 tablet 04/15/20 Unknown Rx Allergies Allergy/AdvReac Type Severity Reaction Status Date / Time codeine Allergy Hives Verified 01/31/15 19:38 ED Review of Systems ROS: Stated complaint: LEFT LEG PAIN Other details as noted in HPI Constitutional: denies: chills, fever Eyes: denies: eye pain, eye discharge, vision change ENT: denies: ear pain, throat pain Respiratory: denies: cough, shortness of breath, wheezing Cardiovascular: denies: chest pain, palpitations Endocrine: no symptoms reported Gastrointestinal: denies: abdominal pain, nausea, diarrhea Genitourinary: denies: urgency, dysuria, discharge Musculoskeletal: arthralgia (Left knee pain). denies: back pain, joint swelling Skin: denies: rash, lesions Neurological: denies: headache, weakness, paresthesias Psychiatric: denies: anxiety, depression Hematological/Lymphatic: denies: easy bleeding, easy bruising ED Past Medical Hx - Past Medical History Hx Hypertension: No Hx Heart Attack/AMI: No Hx Congestive Heart Failure: No Hx Diabetes: Yes Hx Deep Vein Thrombosis: Yes (right knee) Hx Liver Disease: No Hx Renal Disease: No Hx Sickle Cell Disease: No Hx Seizures: No Hx Asthma: Yes (more seasonal) Hx COPD: No Hx HIV: No Additional medical history: anemia - Surgical History Additional Surgical History: x2. , Ectopic - Social History Smoking Status: Never Smoker Substance Use Type: None - Medications Home Medications: Home Medications Medication Instructions Recorded Confirmed Last Taken Type Albuterol Mdi (or & Nicu Only) 2 puff IH QID PRN #1 inhalation 08/24/16 07/03/18 4 Months Ago Rx [ProAir HFA Inhaler] ~03/03/18 Ferrous Sulfate [Feosol 325 MG tab] 325 mg PO BID #60 tablet 07/03/18 Unknown Rx HYDROcodone/APAP 5-325 [[place] 1 each PO Q6HR PRN #30 tablet 07/03/18 Unknown Rx 5/325] Ibuprofen [Motrin] 800 mg PO Q8HR PRN #30 tablet 07/03/18 Unknown Rx Insulin NPH Human Isophane 14 units SQ QHS 07/03/18 07/03/18 07/02/18 21:15 History [Humulin N] Insulin Regular, Human [Humulin R] 10 units SQ QAMDIAB 07/03/18 07/03/18 07/02/18 08:30 History Pnv No.95/Ferrous Fum/Folic AC 1 tab PO QDAY 07/03/18 07/03/18 07/02/18 08:00 History [ Vitamins Tablet] Pnv No.95/Ferrous Fum/Folic AC 1 each PO DAILY #30 tablet 07/03/18 Unknown Rx [Prenavite Tablet] Sennosides/Docusate [Senokot S] 1 each PO Q12HR #14 tab 07/10/18 Unknown Rx Apixaban [Eliquis starter pack] 5 mg PO BID #74 tab.ds.pk 03/10/20 Unknown Rx Albuterol Mdi (or & Nicu Only) 2 puff IH Q4HR PRN #1 inhalation 03/11/20 Unknown Rx [ProAir HFA Inhaler] HYDROcodone/APAP 5-325 [[place] 1 each PO Q6HR PRN #12 tablet 03/11/20 Unknown Rx 5/325] Ibuprofen [Motrin] 800 mg PO Q8HR PRN #30 tablet 03/11/20 Unknown Rx Ibuprofen [Motrin] 800 mg PO Q8HR PRN #30 tablet 04/15/20 Unknown Rx Methocarbamol [Robaxin] 500 mg PO Q8H PRN #24 tablet 04/15/20 Unknown Rx traMADoL [Ultram] 50 mg PO Q6HR PRN #12 tablet 04/15/20 Unknown Rx ED Physical Exam - General Limitations: No Limitations General appearance: alert, in no apparent distress, obese - Head Head exam: Present: atraumatic, normocephalic, normal inspection - Eye Eye exam: Present: normal appearance, PERRL, EOMI Pupils: Present: normal accommodation - ENT ENT exam: Present: normal exam, normal orophraynx, mucous membranes moist, TM's normal bilaterally, normal external ear exam - Neck Neck exam: Present: normal inspection, full ROM. Absent: tenderness - Respiratory Respiratory exam: Present: normal lung sounds bilaterally. Absent: respiratory distress, wheezes, rales, rhonchi, chest wall tenderness, accessory muscle use, decreased breath sounds - Cardiovascular Cardiovascular Exam: Present: regular rate, normal rhythm, normal heart sounds. Absent: systolic murmur, diastolic murmur, rubs, gallop - GI/Abdominal GI/Abdominal exam: Present: soft, normal bowel sounds. Absent: tenderness, guarding, hyperactive bowel sounds, hypoactive bowel sounds, organomegaly - Extremities Exam Extremities exam: Present: normal inspection, full ROM, tenderness (Palpable left knee tenderness with limited range of motion due to pain), normal capillary refill. Absent: pedal edema, joint swelling, calf tenderness - Back Exam Back exam: Present: normal inspection, full ROM. Absent: tenderness, CVA tenderness (R), CVA tenderness (L), muscle spasm, paraspinal tenderness, vertebral tenderness - Neurological Exam Neurological exam: Present: alert, oriented X3, CN II-XII intact, normal gait, reflexes normal - Psychiatric Psychiatric exam: Present: normal affect, normal mood - Skin Skin exam: Present: warm, dry, intact, normal color. Absent: rash ED Course Vital Signs 04/15/20 04:02 Temperature 98.3 F Pulse Rate 90 Respiratory 18 Rate Blood Pressure 98/61 O2 Sat by Pulse 98 Oximetry ED Lower Extremity MDM - Radiology Data Radiology results: report reviewed, image reviewed Findings [facility] [address] [place] [address] XRay Report Signed Patient: MAGUE MISHRA MR#: [id number] : 1990 Acct:[id number] Age/Sex: 30 / F ADM Date: 04/15/20 Loc: ED Attending Dr: Ordering Physician: ZOE VARGAS Date of Service: 04/15/20 Procedure(s): XR knee 3V LT Accession Number(s): [id number] cc: ZOE VARGAS Fluoro Time In Minutes: LEFT KNEE 3 VIEWS INDICATION / CLINICAL INFORMATION: INJURY - PAIN. COMPARISON: None available. FINDINGS: No fracture or other skeletal abnormality. No significant joint effusion or hemarthrosis. Signer Name: Blaine Alves MD Signed: 04/15/2020 5:42 AM Workstation Name: [id number] Transcribed By: TM Dictated By: Blaine Alves MD Electronically Authenticated By: Blaine Alves MD Signed Date/Time: 04/15/20541 DD/ 0 TD/TT: - Medical Decision Making This is a 30-year-old -[place] female with a history of morbid obesity, asthma, DVT and vay-sxxtxdh-yaqqudbft diabetes who presents to the ED with complaint of acute onset worsening left knee pain after her 12-year-old son slipped and fell onto the left knee about 8 hours ago. Patient states that she had similar injury on the left knee about 3 weeks ago and was improving after being evaluated at another hospital but after this incident 8 hours ago the pain got worse. Patient states the pain is worse with any ambulation or palpation of the left knee. In the ED, patient is alert and oriented x3 and is not in distress but appears to be in pain. Patient was treated for pain in the ED and left knee x-ray shows no acute fractures or subluxations. Patient left knee was splinted with [place] wrap and the patient was discharged home on pain medications and muscle relaxants and was advised to follow-up with her primary care physician in 5 to 7 days for reevaluation or return to the ED immediately if symptoms get worse. - Differential Diagnosis Knee sprain; muscle strain; contusion; knee fracture Critical care attestation.: If time is entered above; I have spent that time in minutes in the direct care of this critically ill patient, excluding procedure time. ED Disposition Clinical Impression: Left knee sprain Qualifiers: Encounter type: initial encounter Involved ligament of knee: unspecified ligament Qualified Code(s): S83.92XA - Sprain of unspecified site of left knee, initial encounter Contusion of left knee and lower leg Qualifiers: Encounter type: initial encounter Qualified Code(s): S80.02XA - Contusion of left knee, initial encounter; S80.12XA - Contusion of left lower leg, initial encounter Muscle strain of left knee Qualifiers: Encounter type: initial encounter Qualified Code(s): S86.912A - Strain of unspecified muscle(s) and tendon(s) at lower leg level, left leg, initial encounter Disposition: TO HOME OR SELFCARE Is pt being admited?: No Does the pt Need Aspirin: No Condition: Stable Instructions: Muscle Strain (ED), Leg Sprain (ED), Knee Sprain (ED) Additional Instructions: The left knee x-ray showed no acute fractures or subluxations. Take medication with food, drink plenty of fluids and follow-up with your primary care physician in 5 to 7 days for reevaluation. Return to the ED immediately if symptoms get worse. Prescriptions: Ibuprofen [Motrin] 800 mg PO Q8HR PRN #30 tablet PRN Reason: Pain , Severe (7-10) Methocarbamol [Robaxin] 500 mg PO Q8H PRN #24 tablet PRN Reason: Muscle Spasm traMADoL [Ultram] 50 mg PO Q6HR PRN #12 tablet PRN Reason: Pain Referrals: [facility] [Provider Group] - 3-5 Days Time of Disposition: 05:59 Print Language: SAO TOMEAN
== END 2020-04-15 06:10 | disposition home or self-care (01) ==
LOC: ED 03:40
DX: S86.912A Strain of unspecified muscle(s) and tendon(s) at lower leg level, left leg, initial encounter (principal); S83.92XA Sprain of unspecified site of left knee, initial encounter; S80.02XA Contusion of left knee, initial encounter; S80.12XA Contusion of left lower leg, initial encounter; E11.9 Type 2 diabetes mellitus without complications; J45.909 Unspecified asthma, uncomplicated; Z98.890 Other specified postprocedural states; Z79.899 Other long term (current) drug therapy; Z88.6 Allergy status to analgesic agent; W18.30XA Fall on same level, unspecified, initial encounter; Y93.89 Activity, other specified; Y92.89 Other specified places as the place of occurrence of the external cause; Y99.8 Other external cause status
CPT/HCPCS: 99283; Q0162

== ENCOUNTER 2020-05-08 22:31 | Emergency (ER) | payer MEDICAID | END 2020-05-08 23:39 | disposition left against medical advice (07) | LOC: ED 22:31 | DX: Z20.2 Contact with and (suspected) exposure to infections with a predominantly sexual mode of transmission (principal); Z53.21 Procedure and treatment not carried out due to patient leaving prior to being seen by health care provider ==

== ENCOUNTER 2020-05-09 10:16 | Emergency (ER) | payer MEDICAID ==
[2020-05-09 11:44] VITALS: BP 123/67
--- NOTE | 2020-05-09 11:48 | Emergency Department Report ---
Chief Complaint: Urogenital-Female Stated Complaint: POSS STD - HPI History of Present Illness: The patient was evaluated in the emergency department for symptoms described in the history of present illness. He/she was evaluated in the context of the global COVID-19 pandemic, which necessitated consideration that the patient might be at risk for infection with the virus that causes COVID-19. Institutional protocols and algorithms that pertain to the evaluation of patients at risk for COVID-19 are in a state of rapid change based on information released by regulatory bodies including the CDC and federal and state organizations. These policies and algorithms were followed during the pat ient's care in the emergency department. Please note that these policies, procedures and recommendations changed on a rapid basis. 30-year-old -[place] female presents to the emergency room requesting treatment for STD exposure. Patient states that her informed her this he had contracted chlamydia and gonorrhea outside of their marriage. Patient comes in for evaluation and treatment. Patient denies any abdominal pain no vaginal discharge reports she is currently on her menses. Denies any fever chills no nausea no vomiting or pelvic pain. - Exam Physical Exam: Gen: alert oriented NAD Cardic: regular rate and rhythm no murmurs appreciated Resp: Clear to auscultation bilateral no wheezing no rales or rhonchi. Abdomen: Soft nontender nondistended normal bowel sounds. Mini neuro: Normal finger to nose exam, [id number] normal, Romberg neg, strengh 4/5 all extrimities, Alert and oriented time 3 Crainal nerve II-IIX intact MSE screening note: Focused history and physical exam performed. Due to findings the following was ordered: 30-year-old -[place] female presents to the emergency room requesting treatment for STD exposure. Patient states that her informed her this he had contracted chlamydia and gonorrhea outside of their marriage. Patient comes in for evaluation and treatment. Patient denies any abdominal pain no vaginal discharge reports she is currently on her menses. Denies any fever chills no nausea no vomiting or pelvic pain. Discussed with patient to follow-up with her primary care provider or her [employer] for screening and testing and treatment. ED Disposition for MSE Clinical Impression: Concern about STD in female without diagnosis, Severely overweight Disposition: MED SCREENING EXAM-LEFT Is pt being admited?: No Does the pt Need Aspirin: No Condition: Stable Additional Instructions: Follow-up with your primary care provider or your [employer] for STD evaluation and treatment. Refrain from intercourse until you are screened and treated. Referrals: Yanet Yu or Dr. Leigh [Other] - 3-5 Days
== END 2020-05-09 11:58 | disposition left against medical advice (07) ==
LOC: ED 10:16
DX: Z20.2 Contact with and (suspected) exposure to infections with a predominantly sexual mode of transmission (principal); Z88.8 Allergy status to other drugs, medicaments and biological substances; Z53.21 Procedure and treatment not carried out due to patient leaving prior to being seen by health care provider

== ENCOUNTER 2020-09-04 01:38 | Emergency (ER) | payer MEDICAID ==
[2020-09-04 02:31] VITALS: BP 113/71
--- NOTE | 2020-09-04 02:35 | Emergency Department Report ---
ED Back Pain/Injury HPI - General Chief Complaint: Back Pain/Injury Stated Complaint: BACK PAIN Source: patient Limitations: No Limitations - History of Present Illness Initial Comments: Patient is a 30-year-old -Malag[place] female with a history of lkr-ckdblsp-zphqnjovy diabetes, morbid obesity, asthma, chronic anemia, asthma and DVT who presents to the ED with acute onset persistent nontraumatic low back pain for the last 3 days. Patient states that she has been taking [id number] Tylenol for pain with no relief. Patient states that the last time she took extra strength Tylenol worse 30 minutes prior to arrival in the ED. Patient denies dysuria, urinary frequency and urgency, chest pain, shortness of breath, hematuria, traumatic injury, fall, heavy lifting, nausea and vomiting, abdominal pain, fever, chills, vaginal bleeding, saddle paresthesia, urinary retention, bowel incontinence, numbness and tingling or weakness of lower extremities bilaterally. MD Complaint: back pain (LOWER) -: Sudden, days(s) (3) Similar Symptoms Previously: No Place: home Radiation: none Severity: severe Severity scale (0 -10): 8 Quality: sharp, aching Consistency: constant Improves With: none Worsens With: movement, walking Associated Symptoms: denies other symptoms. denies: confusion, weakness, chest pain, numbness, difficulty walking, cough, difficulty urinating, diaphoresis, incontinence, fever/chills, constipation, headaches, abdominal pain, loss of appetite, malaise, rash, seizure, shortness of breath, syncope Treatments Prior to Arrival: acetaminophen - Related Data Home Medications Medication Instructions Recorded Confirmed Last Taken Insulin NPH Human Isophane 14 units SQ QHS 07/03/18 07/03/18 07/02/18 21:15 [Humulin N] Insulin Regular, Human [Humulin R] 10 units SQ QAMDIAB 07/03/18 07/03/18 07/02/18 08:30 Pnv No.95/Ferrous Fum/Folic AC 1 tab PO QDAY 07/03/18 07/03/18 07/02/18 08:00 [ Vitamins Tablet] Previous Rx's Medication Instructions Recorded Last Taken Type Albuterol Mdi (or & Nicu Only) 2 puff IH QID PRN #1 inhalation 08/24/16 4 Months Ago Rx [ProAir HFA Inhaler] ~03/03/18 Ferrous Sulfate [Feosol 325 MG tab] 325 mg PO BID #60 tablet 07/03/18 Unknown Rx HYDROcodone/APAP 5-325 [[place] 1 each PO Q6HR PRN #30 tablet 07/03/18 Unknown Rx 5/325] Ibuprofen [Motrin] 800 mg PO Q8HR PRN #30 tablet 07/03/18 Unknown Rx Pnv No.95/Ferrous Fum/Folic AC 1 each PO DAILY #30 tablet 07/03/18 Unknown Rx [Prenavite Tablet] Sennosides/Docusate [Senokot S] 1 each PO Q12HR #14 tab 07/10/18 Unknown Rx Apixaban [Eliquis starter pack] 5 mg PO BID #74 tab.ds.pk 03/10/20 Unknown Rx Albuterol Mdi (or & Nicu Only) 2 puff IH Q4HR PRN #1 inhalation 03/11/20 Unknown Rx [ProAir HFA Inhaler] HYDROcodone/APAP 5-325 [[place] 1 each PO Q6HR PRN #12 tablet 03/11/20 Unknown Rx 5/325] Ibuprofen [Motrin] 800 mg PO Q8HR PRN #30 tablet 03/11/20 Unknown Rx Ibuprofen [Motrin] 800 mg PO Q8HR PRN #30 tablet 04/15/20 Unknown Rx Methocarbamol [Robaxin] 500 mg PO Q8H PRN #24 tablet 04/15/20 Unknown Rx Baclofen 20 mg PO Q8H PRN #30 tablet 09/04/20 Unknown Rx traMADoL [Ultram 50 MG tab] 50 mg PO Q6HR PRN #12 tablet 09/04/20 Unknown Rx Allergies Allergy/AdvReac Type Severity Reaction Status Date / Time codeine Allergy Hives Verified 01/31/15 19:38 ED Review of Systems ROS: Stated complaint: BACK PAIN Other details as noted in HPI Constitutional: denies: chills, fever Eyes: denies: eye pain, eye discharge, vision change ENT: denies: ear pain, throat pain Respiratory: denies: cough, shortness of breath, wheezing Cardiovascular: denies: chest pain, palpitations Endocrine: no symptoms reported Gastrointestinal: denies: abdominal pain, nausea, vomiting, diarrhea Genitourinary: denies: urgency, dysuria, discharge Musculoskeletal: back pain (Lower back pain), arthralgia. denies: joint swelling Skin: denies: rash, lesions Neurological: denies: headache, weakness, paresthesias Psychiatric: denies: anxiety, depression Hematological/Lymphatic: denies: easy bleeding, easy bruising ED Past Medical Hx - Past Medical History Previous Medical History?: Yes Hx Hypertension: No Hx Heart Attack/AMI: No Hx Congestive Heart Failure: No Hx Diabetes: Yes Hx Deep Vein Thrombosis: Yes (right knee) Hx Liver Disease: No Hx Renal Disease: No Hx Sickle Cell Disease: No Hx Seizures: No Hx Asthma: Yes (more seasonal) Hx COPD: No Hx HIV: No Additional medical history: anemia - Surgical History Past Surgical History?: Yes Additional Surgical History: x2. , Ectopic - Social History Smoking Status: Never Smoker Substance Use Type: None - Medications Home Medications: Home Medications Medication Instructions Recorded Confirmed Last Taken Type Albuterol Mdi (or & Nicu Only) 2 puff IH QID PRN #1 inhalation 08/24/16 07/03/18 4 Months Ago Rx [ProAir HFA Inhaler] ~03/03/18 Ferrous Sulfate [Feosol 325 MG tab] 325 mg PO BID #60 tablet 07/03/18 Unknown Rx HYDROcodone/APAP 5-325 [[place] 1 each PO Q6HR PRN #30 tablet 07/03/18 Unknown Rx 5/325] Ibuprofen [Motrin] 800 mg PO Q8HR PRN #30 tablet 07/03/18 Unknown Rx Insulin NPH Human Isophane 14 units SQ QHS 07/03/18 07/03/18 07/02/18 21:15 History [Humulin N] Insulin Regular, Human [Humulin R] 10 units SQ QAMDIAB 07/03/18 07/03/18 07/02/18 08:30 History Pnv No.95/Ferrous Fum/Folic AC 1 tab PO QDAY 07/03/18 07/03/18 07/02/18 08:00 History [ Vitamins Tablet] Pnv No.95/Ferrous Fum/Folic AC 1 each PO DAILY #30 tablet 07/03/18 Unknown Rx [Prenavite Tablet] Sennosides/Docusate [Senokot S] 1 each PO Q12HR #14 tab 07/10/18 Unknown Rx Apixaban [Eliquis starter pack] 5 mg PO BID #74 tab.ds.pk 03/10/20 Unknown Rx Albuterol Mdi (or & Nicu Only) 2 puff IH Q4HR PRN #1 inhalation 03/11/20 Unknown Rx [ProAir HFA Inhaler] HYDROcodone/APAP 5-325 [[place] 1 each PO Q6HR PRN #12 tablet 03/11/20 Unknown Rx 5/325] Ibuprofen [Motrin] 800 mg PO Q8HR PRN #30 tablet 03/11/20 Unknown Rx Ibuprofen [Motrin] 800 mg PO Q8HR PRN #30 tablet 04/15/20 Unknown Rx Methocarbamol [Robaxin] 500 mg PO Q8H PRN #24 tablet 04/15/20 Unknown Rx Baclofen 20 mg PO Q8H PRN #30 tablet 09/04/20 Unknown Rx traMADoL [Ultram 50 MG tab] 50 mg PO Q6HR PRN #12 tablet 09/04/20 Unknown Rx ED Physical Exam - General Limitations: No Limitations General appearance: alert, in no apparent distress - Head Head exam: Present: atraumatic, normocephalic, normal inspection - Eye Eye exam: Present: normal appearance, PERRL, EOMI Pupils: Present: normal accommodation - ENT ENT exam: Present: normal exam, normal orophraynx, mucous membranes moist, TM's normal bilaterally, normal external ear exam - Neck Neck exam: Present: normal inspection, full ROM - Respiratory Respiratory exam: Present: normal lung sounds bilaterally. Absent: respiratory distress, wheezes, rhonchi, chest wall tenderness, accessory muscle use, decreased breath sounds, prolonged expiratory - Cardiovascular Cardiovascular Exam: Present: regular rate, normal rhythm, normal heart sounds. Absent: systolic murmur, diastolic murmur, rubs, gallop - GI/Abdominal GI/Abdominal exam: Present: soft, normal bowel sounds. Absent: tenderness, guarding, hyperactive bowel sounds, organomegaly - Extremities Exam Extremities exam: Present: normal inspection, full ROM, normal capillary refill - Back Exam Back exam: Present: normal inspection, full ROM, tenderness (Palpable lumbosacral paraspinal musculoskeletal tenderness), muscle spasm, paraspinal tenderness. Absent: CVA tenderness (R), CVA tenderness (L), vertebral tenderness - Neurological Exam Neurological exam: Present: alert, oriented X3, CN II-XII intact, normal gait, reflexes normal - Psychiatric Psychiatric exam: Present: normal affect, normal mood - Skin Skin exam: Present: warm, dry, intact, normal color. Absent: rash ED Course Vital Signs 09/04/20 02:30 Temperature 98.6 F Pulse Rate 86 Respiratory 18 Rate Blood Pressure 113/71 [Left] O2 Sat by Pulse 99 Oximetry ED Medical Decision Making - Medical Decision Making This is a 30-year-old -Malag[place] female with a history of non -insulin-dependent diabetes, morbid obesity, asthma, chronic anemia, asthma and DVT who presents to the ED with acute onset persistent nontraumatic low back pain for the last 3 days. Patient states that she has been taking sddl-vrs-[id number] Tylenol for pain with no relief. Patient states that the last time she took extra strength Tylenol worse 30 minutes prior to arrival in the ED. in the ED, patient is alert and oriented x3 and is not in any distress. Patient will discharge home on pain medications and muscle relaxants and advised to follow-up with her primary care physician in 5 to 7 days for reevaluation. Patient is advised return to the ED immediately if symptoms get worse. - Differential Diagnosis Muscle spasm; Muscle strain; Critical care attestation.: If time is entered above; I have spent that time in minutes in the direct care of this critically ill patient, excluding procedure time. ED Disposition Clinical Impression: Acute bilateral low back pain without sciatica, Spasm of muscle of lower back, Strain of muscle, fascia and tendon of lower back, initial encounter Disposition: DC-01 TO HOME OR SELFCARE Is pt being admited?: No Does the pt Need Aspirin: No Condition: Stable Instructions: Muscle Cramps and Spasms, Vbsu-[id number]-[id number], Muscle Strain, Rgjy-dm-Grhv, Low Back Sprain or Strain Rehab-SportsMed Additional Instructions: Patient history and physical exam findings, your symptoms are likely due to muscle strain or muscle spasm of your low back. Since you have been ambulatory is unlikely that there is a fracture of your lower back bones since he did not fall or had any traumatic event. Therefore take medications with food, drink plenty of fluids and follow-up with your primary care physician in 5 to 7 days for reevaluation. Return to the ED immediately if symptoms get worse. Prescriptions: Baclofen 20 mg PO Q8H PRN #30 tablet PRN Reason: Muscle Spasm traMADoL [Ultram 50 MG tab] 50 mg PO Q6HR PRN #12 tablet PRN Reason: Pain Referrals: [facility] [Provider Group] - 3-5 Days Time of Disposition: 02:35 Print Language: CZECH
== END 2020-09-04 02:46 | disposition home or self-care (01) ==
LOC: ED 01:38
DX: S39.012A Strain of muscle, fascia and tendon of lower back, initial encounter (principal); M54.42 Lumbago with sciatica, left side; M54.41 Lumbago with sciatica, right side; M62.830 Muscle spasm of back; E11.9 Type 2 diabetes mellitus without complications; Z98.890 Other specified postprocedural states; Z79.1 Long term (current) use of non-steroidal anti-inflammatories (NSAID); Z79.4 Long term (current) use of insulin; Z79.899 Other long term (current) drug therapy; Z88.8 Allergy status to other drugs, medicaments and biological substances; X58.XXXA Exposure to other specified factors, initial encounter; Y93.89 Activity, other specified; Y92.89 Other specified places as the place of occurrence of the external cause; Y99.8 Other external cause status
CPT/HCPCS: 99282

== ENCOUNTER 2020-09-10 14:32 | Emergency (ER) | payer MEDICAID ==
[2020-09-10 14:47] VITALS: BP 99/75
[2020-09-10] MEDS ORDERED: IBUPROFEN 800 MG TAB PO ONE (14:48)
--- NOTE | 2020-09-10 14:48 | Emergency Department Report ---
ED ENT HPI - General Chief complaint: Dental/Oral Stated complaint: THONGE SWOLLEN Time Seen by Provider: 09/10/20 14:44 Source: patient Mode of arrival: Ambulatory Limitations: No Limitations - History of Present Illness Initial comments: 30-year-old female presents to the ER today complaint of painful bumps underneath her tongue. She states that she noticed it a couple days ago. She states that she thought she was having an allergic reaction has been taking Benadryl but not been helping. She states that eating and drinking worsens the pain and therefore she has decreased intake of p.o. fluids and solids. She denies any injury to the tongue. She states that she has not been eating or drinking anything unusual. She denies any throat pain or difficulty swallowing. She denies any drooling or difficulty opening her mouth. She denies similar symptoms in the past MD complaint: other (painful bumps on tongue) -: days(s) (2) - Related Data Home Medications Medication Instructions Recorded Confirmed Last Taken Insulin NPH Human Isophane 14 units SQ QHS 07/03/18 07/03/18 07/02/18 21:15 [Humulin N] Insulin Regular, Human [Humulin R] 10 units SQ QAMDIAB 07/03/18 07/03/18 07/02/18 08:30 Pnv No.95/Ferrous Fum/Folic AC 1 tab PO QDAY 07/03/18 07/03/18 07/02/18 08:00 [ Vitamins Tablet] Previous Rx's Medication Instructions Recorded Last Taken Type Albuterol Mdi (or & Nicu Only) 2 puff IH QID PRN #1 inhalation 08/24/16 4 Months Ago Rx [ProAir HFA Inhaler] ~03/03/18 Ferrous Sulfate [Feosol 325 MG tab] 325 mg PO BID #60 tablet 07/03/18 Unknown Rx HYDROcodone/APAP 5-325 [[place] 1 each PO Q6HR PRN #30 tablet 07/03/18 Unknown Rx 5/325] Pnv No.95/Ferrous Fum/Folic AC 1 each PO DAILY #30 tablet 07/03/18 Unknown Rx [Prenavite Tablet] Sennosides/Docusate [Senokot S] 1 each PO Q12HR #14 tab 07/10/18 Unknown Rx Apixaban [Eliquis starter pack] 5 mg PO BID #74 tab.ds.pk 03/10/20 Unknown Rx Albuterol Mdi (or & Nicu Only) 2 puff IH Q4HR PRN #1 inhalation 03/11/20 Unknown Rx [ProAir HFA Inhaler] HYDROcodone/APAP 5-325 [[place] 1 each PO Q6HR PRN #12 tablet 03/11/20 Unknown Rx 5/325] Methocarbamol [Robaxin] 500 mg PO Q8H PRN #24 tablet 04/15/20 Unknown Rx Baclofen 20 mg PO Q8H PRN #30 tablet 09/04/20 Unknown Rx traMADoL [Ultram 50 MG tab] 50 mg PO Q6HR PRN #12 tablet 09/04/20 Unknown Rx Ibuprofen [Motrin 800 MG tab] 800 mg PO Q8HR PRN #30 tablet 09/10/20 Unknown Rx Nystas/Diphen/Xyl Visc/Mylanta 10 - 15 ml MM Q4H PRN #160 ml 09/10/20 Unknown Rx [Magic Mouthwash] Allergies Allergy/AdvReac Type Severity Reaction Status Date / Time codeine Allergy Hives Verified 09/10/20 14:45 ED Dental HPI - General Chief complaint: Eye Problems Stated complaint: THONGE SWOLLEN Time Seen by Provider: 09/10/20 14:44 Source: patient Mode of arrival: Ambulatory Limitations: No Limitations - Related Data Home Medications Medication Instructions Recorded Confirmed Last Taken Insulin NPH Human Isophane 14 units SQ QHS 07/03/18 07/03/18 07/02/18 21:15 [Humulin N] Insulin Regular, Human [Humulin R] 10 units SQ QAMDIAB 07/03/18 07/03/18 07/02/18 08:30 Pnv No.95/Ferrous Fum/Folic AC 1 tab PO QDAY 07/03/18 07/03/18 07/02/18 08:00 [ Vitamins Tablet] Previous Rx's Medication Instructions Recorded Last Taken Type Albuterol Mdi (or & Nicu Only) 2 puff IH QID PRN #1 inhalation 08/24/16 4 Months Ago Rx [ProAir HFA Inhaler] ~03/03/18 Ferrous Sulfate [Feosol 325 MG tab] 325 mg PO BID #60 tablet 07/03/18 Unknown Rx HYDROcodone/APAP 5-325 [[place] 1 each PO Q6HR PRN #30 tablet 07/03/18 Unknown Rx 5/325] Pnv No.95/Ferrous Fum/Folic AC 1 each PO DAILY #30 tablet 07/03/18 Unknown Rx [Prenavite Tablet] Sennosides/Docusate [Senokot S] 1 each PO Q12HR #14 tab 07/10/18 Unknown Rx Apixaban [Eliquis starter pack] 5 mg PO BID #74 tab.ds.pk 03/10/20 Unknown Rx Albuterol Mdi (or & Nicu Only) 2 puff IH Q4HR PRN #1 inhalation 03/11/20 Unknown Rx [ProAir HFA Inhaler] HYDROcodone/APAP 5-325 [[place] 1 each PO Q6HR PRN #12 tablet 03/11/20 Unknown Rx 5/325] Methocarbamol [Robaxin] 500 mg PO Q8H PRN #24 tablet 04/15/20 Unknown Rx Baclofen 20 mg PO Q8H PRN #30 tablet 09/04/20 Unknown Rx traMADoL [Ultram 50 MG tab] 50 mg PO Q6HR PRN #12 tablet 09/04/20 Unknown Rx Ibuprofen [Motrin 800 MG tab] 800 mg PO Q8HR PRN #30 tablet 09/10/20 Unknown Rx Nystas/Diphen/Xyl Visc/Mylanta 10 - 15 ml MM Q4H PRN #160 ml 09/10/20 Unknown Rx [Magic Mouthwash] Allergies Allergy/AdvReac Type Severity Reaction Status Date / Time codeine Allergy Hives Verified 09/10/20 14:45 ED Review of Systems ROS: Stated complaint: THONGE SWOLLEN Other details as noted in HPI Comment: All other systems reviewed and negative ENT: other (Painful bumps underneath some). denies: ear pain, throat pain, dental pain, hearing loss, epistaxis, congestion Respiratory: no symptoms reported Cardiovascular: as per HPI Skin: rash ED Past Medical Hx - Past Medical History Hx Hypertension: No Hx Heart Attack/AMI: No Hx Congestive Heart Failure: No Hx Diabetes: Yes Hx Deep Vein Thrombosis: Yes (right knee) Hx Liver Disease: No Hx Renal Disease: No Hx Sickle Cell Disease: No Hx Seizures: No Hx Asthma: Yes (more seasonal) Hx COPD: No Hx HIV: No Additional medical history: anemia - Surgical History Additional Surgical History: x2. , Ectopic - Social History Smoking Status: Never Smoker Substance Use Type: None - Medications Home Medications: Home Medications Medication Instructions Recorded Confirmed Last Taken Type Albuterol Mdi (or & Nicu Only) 2 puff IH QID PRN #1 inhalation 08/24/16 07/03/18 4 Months Ago Rx [ProAir HFA Inhaler] ~03/03/18 Ferrous Sulfate [Feosol 325 MG tab] 325 mg PO BID #60 tablet 07/03/18 Unknown Rx HYDROcodone/APAP 5-325 [[place] 1 each PO Q6HR PRN #30 tablet 07/03/18 Unknown Rx 5/325] Insulin NPH Human Isophane 14 units SQ QHS 07/03/18 07/03/18 07/02/18 21:15 History [Humulin N] Insulin Regular, Human [Humulin R] 10 units SQ QAMDIAB 07/03/18 07/03/18 07/02/18 08:30 History Pnv No.95/Ferrous Fum/Folic AC 1 tab PO QDAY 07/03/18 07/03/18 07/02/18 08:00 History [ Vitamins Tablet] Pnv No.95/Ferrous Fum/Folic AC 1 each PO DAILY #30 tablet 07/03/18 Unknown Rx [Prenavite Tablet] Sennosides/Docusate [Senokot S] 1 each PO Q12HR #14 tab 07/10/18 Unknown Rx Apixaban [Eliquis starter pack] 5 mg PO BID #74 tab.ds.pk 03/10/20 Unknown Rx Albuterol Mdi (or & Nicu Only) 2 puff IH Q4HR PRN #1 inhalation 03/11/20 Unknown Rx [ProAir HFA Inhaler] HYDROcodone/APAP 5-325 [[place] 1 each PO Q6HR PRN #12 tablet 03/11/20 Unknown Rx 5/325] Methocarbamol [Robaxin] 500 mg PO Q8H PRN #24 tablet 04/15/20 Unknown Rx Baclofen 20 mg PO Q8H PRN #30 tablet 09/04/20 Unknown Rx traMADoL [Ultram 50 MG tab] 50 mg PO Q6HR PRN #12 tablet 09/04/20 Unknown Rx Ibuprofen [Motrin 800 MG tab] 800 mg PO Q8HR PRN #30 tablet 09/10/20 Unknown Rx Nystas/Diphen/Xyl Visc/Mylanta 10 - 15 ml MM Q4H PRN #160 ml 09/10/20 Unknown Rx [Magic Mouthwash] ED Physical Exam - General Limitations: No Limitations General appearance: alert, in no apparent distress - Head Head exam: Present: normocephalic - Eye Eye exam: Present: normal appearance, PERRL, EOMI Pupils: Present: normal accommodation - ENT ENT exam: Present: normal orophraynx, mucous membranes moist, other (About 2 very small superficial ulcerated area noted underneath the tongue; there is also a very small flesh-colored vesicular lesion underneath the tongue is also tender to palpate; the tongue overall is not swollen. No apparent salivary stone noted. ) - Expanded ENT Exam Expanded Mouth exam: Absent: drooling, muffled voice, tongue elevation, laceration Throat exam: Positive: normal inspection - Neck Neck exam: Present: normal inspection, full ROM. Absent: meningismus - Respiratory Respiratory exam: Present: normal lung sounds bilaterally. Absent: respiratory distress - Cardiovascular Cardiovascular Exam: Present: regular rate - Neurological Exam Neurological exam: Present: alert, oriented X3 - Psychiatric Psychiatric exam: Present: normal affect, normal mood - Skin Skin exam: Present: intact ED Course Vital Signs 09/10/20 09/10/20 09/10/20 14:42 14:47 14:48 Temperature 98.1 F Pulse Rate 94 H Respiratory 20 20 Rate Blood Pressure 99/75 O2 Sat by Pulse 100 Oximetry ED Medical Decision Making - Medical Decision Making 30-year-old female presents to the ER today complaint of painful bumps underneath her tongue. She states that she noticed it a couple days ago. She states that she thought she was having an allergic reaction has been taking Benadryl but not been helping. She states that eating and drinking worsens the pain and therefore she has decreased intake of p.o. fluids and solids. She denies any injury to the tongue. She states that she has not been eating or drinking anything unusual. She denies any throat pain or difficulty swallowing. She denies any drooling or difficulty opening her mouth. She denies similar symptoms in the past. 1513: Physical exam shows very small superficial ulceration on the tongue. No evidence of secondary bacterial infection. No angioedema noted. Patient is able to tolerate her secretions. She has no drooling or trismus. No respiratory distress or stridor. Vital signs are stable. She is well- appearing, not toxic and appears well-hydrated. Discussed suspected diagnosis and treatment plan with patient. Patient expressed understanding of instructions and agree with plan. Patient was stable at time of discharge. Critical care attestation.: If time is entered above; I have spent that time in minutes in the direct care of this critically ill patient, excluding procedure time. ED Disposition Clinical Impression: Tongue ulcer Disposition: DC- TO HOME OR SELFCARE Is pt being admited?: No Does the pt Need Aspirin: No Condition: Stable Instructions: Oral Ulcers Additional Instructions: Take the motrin as prescribed. Prescriptions: Nystas/Diphen/Xyl Visc/Mylanta [Magic Mouthwash] 10 - 15 ml MM Q4H PRN #160 ml PRN Reason: Mouth Pain Ibuprofen [Motrin 800 MG tab] 800 mg PO Q8HR PRN #30 tablet PRN Reason: Moder Pain Unrelieved By [place] Referrals: PRIMARY CARE, [Primary Care Provider] - 3-5 Days Time of Disposition: 15:06
== END 2020-09-10 15:17 | disposition home or self-care (01) ==
LOC: ED 14:32
DX: K14.0 Glossitis (principal); E11.9 Type 2 diabetes mellitus without complications; J45.909 Unspecified asthma, uncomplicated; Z98.890 Other specified postprocedural states; Z79.1 Long term (current) use of non-steroidal anti-inflammatories (NSAID); Z79.4 Long term (current) use of insulin; Z79.899 Other long term (current) drug therapy; Z88.8 Allergy status to other drugs, medicaments and biological substances
CPT/HCPCS: 99282

== ENCOUNTER 2021-01-31 09:24 | Emergency (ER) | payer MEDICAID ==
[2021-01-31 09:57] VITALS: BP 107/71
[2021-01-31] MEDS ORDERED: BUTALB/ACETAMINOPHEN/CAFFEINE TAB PO ONE (13:42)
[2021-01-31] MEDS ORDERED: KETOROLAC 60 MG/2 ML INJ IM ONE (13:42)
--- NOTE | 2021-01-31 13:43 | Emergency Department Report ---
ED Back Pain/Injury HPI - General Chief Complaint: Headache Stated Complaint: MUSCLE SPASM BAD HEADACHE Time Seen by Provider: 01/31/21 13:18 Source: patient Limitations: No Limitations - History of Present Illness Initial Comments: 30-year-old female with a past medical history of insulin-dependent diabetes, and asthma and tobacco use presents to the ER today with complaints of upper back pain which radiates down into her lower back and into her neck causing her to have an occipital headache. She denies any particular injury or strenuous activity. She states that the pain is worse with movement. She states that she spoke to her aunt who is an RN and told her she was having spasms. She states that she tried an [id number] medication that I gave her but it did not help. She also tried a muscle relaxer that her aunt gave her and it did not help. Patient states that the pain has been constant but waxes and wanes. She denies any pain into her chest or any isolated chest pain. She denies any shortness of breath or wheezing. She denies any abdominal pain, nausea, vomiting or diarrhea. She denies any fever or chills. She denies any bowel or bladder incontinence, urinary retention or constipation. She denies any lower extremity weakness, saddle anesthesia, numbness or tingling. MD Complaint: back pain, other (MALONE) -: Gradual (3 days ago ) - Related Data Home Medications Medication Instructions Recorded Confirmed Last Taken Insulin NPH Human Isophane 14 units SQ QHS 07/03/18 07/03/18 07/02/18 21:15 [Humulin N] Insulin Regular, Human [Humulin R] 10 units SQ QAMDIAB 07/03/18 07/03/18 07/02/18 08:30 Pnv No.95/Ferrous Fum/Folic AC 1 tab PO QDAY 07/03/18 07/03/18 07/02/18 08:00 [ Vitamins Tablet] Previous Rx's Medication Instructions Recorded Last Taken Type Albuterol Mdi (or & Nicu Only) 2 puff IH QID PRN #1 inhalation 08/24/16 4 Months Ago Rx [ProAir HFA Inhaler] ~03/03/18 Ferrous Sulfate [Feosol 325 MG tab] 325 mg PO BID #60 tablet 07/03/18 Unknown Rx HYDROcodone/APAP 5-325 [Hiland 1 each PO Q6HR PRN #30 tablet 07/03/18 Unknown Rx 5/325] Pnv No.95/Ferrous Fum/Folic AC 1 each PO DAILY #30 tablet 07/03/18 Unknown Rx [Prenavite Tablet] Sennosides/Docusate [Senokot S] 1 each PO Q12HR #14 tab 07/10/18 Unknown Rx Apixaban [Eliquis starter pack] 5 mg PO BID #74 tab.ds.pk 03/10/20 Unknown Rx Albuterol Mdi (or & Nicu Only) 2 puff IH Q4HR PRN #1 inhalation 03/11/20 Unknown Rx [ProAir HFA Inhaler] HYDROcodone/APAP 5-325 [Hiland 1 each PO Q6HR PRN #12 tablet 03/11/20 Unknown Rx 5/325] Methocarbamol [Robaxin] 500 mg PO Q8H PRN #24 tablet 04/15/20 Unknown Rx Baclofen 20 mg PO Q8H PRN #30 tablet 09/04/20 Unknown Rx traMADoL [Ultram 50 MG tab] 50 mg PO Q6HR PRN #12 tablet 09/04/20 Unknown Rx Ibuprofen [Motrin 800 MG tab] 800 mg PO Q8HR PRN #30 tablet 09/10/20 Unknown Rx Nystas/Diphen/Xyl Visc/Mylanta 10 - 15 ml MM Q4H PRN #160 ml 09/10/20 Unknown Rx [Magic Mouthwash] Allergies Allergy/AdvReac Type Severity Reaction Status Date / Time codeine Allergy Hives Verified 09/10/20 14:45 ketorolac [From Toradol] Allergy Hives Verified 01/31/21 14:11 ED Review of Systems ROS: Stated complaint: MUSCLE SPASM BAD HEADACHE Other details as noted in HPI Comment: All other systems reviewed and negative Constitutional: denies: chills, fever Eyes: denies: eye pain, eye discharge, vision change ENT: denies: ear pain, throat pain Respiratory: denies: cough, orthopnea, shortness of breath, SOB with exertion, SOB at rest, wheezing Cardiovascular: denies: chest pain, palpitations, dyspnea on exertion, orthopnea, edema, syncope, paroxysmal nocturnal dyspnea Endocrine: no symptoms reported Gastrointestinal: denies: abdominal pain, nausea, vomiting, diarrhea, constipation, hematemesis, melena Genitourinary: denies: urgency, dysuria, frequency, hematuria, discharge, abnormal menses, dyspareunia Musculoskeletal: back pain. denies: joint swelling, arthralgia Neurological: headache. denies: numbness, paresthesias, confusion, abnormal gait, vertigo Psychiatric: denies: anxiety, depression, auditory hallucinations, visual hallucinations, homicidal thoughts, suicidal thoughts Hematological/Lymphatic: denies: easy bleeding, easy bruising, swollen glands ED Past Medical Hx - Past Medical History Hx Hypertension: No Hx Heart Attack/AMI: No Hx Congestive Heart Failure: No Hx Diabetes: Yes Hx Deep Vein Thrombosis: Yes (right knee) Hx Liver Disease: No Hx Renal Disease: No Hx Sickle Cell Disease: No Hx Seizures: No Hx Asthma: Yes (more seasonal) Hx COPD: No Hx HIV: No Additional medical history: anemia - Surgical History Additional Surgical History: x2. , Ectopic - Social History Smoking Status: Never Smoker Substance Use Type: None - Medications Home Medications: Home Medications Medication Instructions Recorded Confirmed Last Taken Type Albuterol Mdi (or & Nicu Only) 2 puff IH QID PRN #1 inhalation 08/24/16 07/03/18 4 Months Ago Rx [ProAir HFA Inhaler] ~03/03/18 Ferrous Sulfate [Feosol 325 MG tab] 325 mg PO BID #60 tablet 07/03/18 Unknown Rx HYDROcodone/APAP 5-325 [Hiland 1 each PO Q6HR PRN #30 tablet 07/03/18 Unknown Rx 5/325] Insulin NPH Human Isophane 14 units SQ QHS 07/03/18 07/03/18 07/02/18 21:15 History [Humulin N] Insulin Regular, Human [Humulin R] 10 units SQ QAMDIAB 07/03/18 07/03/18 07/02/18 08:30 History Pnv No.95/Ferrous Fum/Folic AC 1 tab PO QDAY 07/03/18 07/03/18 07/02/18 08:00 History [ Vitamins Tablet] Pnv No.95/Ferrous Fum/Folic AC 1 each PO DAILY #30 tablet 07/03/18 Unknown Rx [Prenavite Tablet] Sennosides/Docusate [Senokot S] 1 each PO Q12HR #14 tab 07/10/18 Unknown Rx Apixaban [Eliquis starter pack] 5 mg PO BID #74 tab.ds.pk 03/10/20 Unknown Rx Albuterol Mdi (or & Nicu Only) 2 puff IH Q4HR PRN #1 inhalation 03/11/20 Unknown Rx [ProAir HFA Inhaler] HYDROcodone/APAP 5-325 [Hiland 1 each PO Q6HR PRN #12 tablet 03/11/20 Unknown Rx 5/325] Methocarbamol [Robaxin] 500 mg PO Q8H PRN #24 tablet 04/15/20 Unknown Rx Baclofen 20 mg PO Q8H PRN #30 tablet 09/04/20 Unknown Rx traMADoL [Ultram 50 MG tab] 50 mg PO Q6HR PRN #12 tablet 09/04/20 Unknown Rx Ibuprofen [Motrin 800 MG tab] 800 mg PO Q8HR PRN #30 tablet 09/10/20 Unknown Rx Nystas/Diphen/Xyl Visc/Mylanta 10 - 15 ml MM Q4H PRN #160 ml 09/10/20 Unknown Rx [Magic Mouthwash] ED Physical Exam - General Limitations: No Limitations General appearance: alert, in distress (Patient appears uncomfortable and appears to be in some pain from her thoracic back) - Head Head exam: Present: atraumatic, normocephalic, normal inspection - Eye Eye exam: Present: normal appearance, PERRL, EOMI Pupils: Present: normal accommodation - ENT ENT exam: Present: normal exam, mucous membranes moist, TM's normal bilaterally - Neck Neck exam: Present: normal inspection, tenderness (ttp right paraspinal muscle ), full ROM. Absent: meningismus - Respiratory Respiratory exam: Present: normal lung sounds bilaterally. Absent: respiratory distress, wheezes, rales, rhonchi - Cardiovascular Cardiovascular Exam: Present: regular rate, normal rhythm, normal heart sounds - GI/Abdominal GI/Abdominal exam: Present: soft. Absent: distended, tenderness, guarding, rebound - Back Exam Back exam: Present: normal inspection, paraspinal tenderness (Patient has diffuse tenderness to palpation bilateral mid to lower paraspinal muscles in the thoracic and lumbar areas), vertebral tenderness (Diffuse midline tenderness mid to lower thoracic spine and upper middle lower lumbar spine.), other (Range of motion of the spine mildly reduced due to pain.). Absent: CVA tenderness (R), CVA tenderness (L) - Neurological Exam Neurological exam: Present: alert, oriented X3, CN II-XII intact, normal gait - Psychiatric Psychiatric exam: Present: normal affect, normal mood - Skin Skin exam: Present: intact ED Course Vital Signs 01/31/21 09:56 Temperature 98.3 F Pulse Rate 81 Respiratory 18 Rate Blood Pressure 107/71 O2 Sat by Pulse 95 Oximetry ED Medical Decision Making - Lab Data Result diagrams: 01/31/21 13:51 01/31/21 13:51 - Medical Decision Making 1550: I was told by the nurse that patient left. She came out the room and stated that she could not wait for any more tests and that she had to go to do something with her boyfriend and walked out. Nurse reports that patient walked out before they were able to get a chance to get her to sign AMA. I was not told about this until after the patient left. Critical care attestation.: If time is entered above; I have spent that time in minutes in the direct care of this critically ill patient, excluding procedure time. ED Disposition Clinical Impression: Thoracic back pain, Headache Disposition: ELOPED Is pt being admited?: No Condition: Stable Referrals: PRIMARY CARE, [Primary Care Provider] - 3-5 Days
[2021-01-31 14:13] LABS: Basophils # (Auto) 0.1 K/mm3 (0.0-0.1); Eosinophils # (Auto) 0.2 K/mm3 (0.0-0.4); Eosinophils % (Auto) 2.4 % (0.0-4.3); Hematocrit 43.4 % (30.3-42.9); Hemoglobin 13.5 gm/dl (10.1-14.3); Lymphocytes # (Auto) 1.9 K/mm3 (1.2-5.4); Lymphocytes % (Auto) 28.1 % (13.4-35.0); Mean Corpuscular HGB Conc 31 % (30-34); Mean Corpuscular Volume 77 fl (79-97); Monocytes # (Auto) 0.8 K/mm3 (0.0-0.8); Monocytes % (Auto) 12.3 % (0.0-7.3); Platelet Count 156 K/mm3 (140-440); Red Blood Count 5.66 M/mm3 (3.65-5.03)
[2021-01-31 14:34] LABS: Alanine Aminotransferase 5 units/L (7-56); Albumin 3.9 g/dL (3.9-5); Blood Urea Nitrogen 8 mg/dL (7-17); Hemolysis Index 7
[2021-01-31 14:40] LABS: BUN/Creatinine Ratio 11
[2021-01-31] MEDS ORDERED: traMADol 50 MG TAB PO ONE (14:49)
[2021-01-31] MEDS ORDERED: METAXALONE 800 MG TAB PO ONE (15:00)
== END 2021-01-31 15:29 | disposition left against medical advice (07) ==
LOC: ED 09:24
DX: M54.6 Pain in thoracic spine (principal); R51.9 Headache, unspecified; J45.909 Unspecified asthma, uncomplicated; E11.9 Type 2 diabetes mellitus without complications; Z88.5 Allergy status to narcotic agent
CPT/HCPCS: 36415; 80053; 85025; 99283; J1885

== ENCOUNTER 2021-12-18 20:51 | Emergency (ER) | payer SELFPAY ==
[2021-12-18 21:55] VITALS: BP 144/82
--- NOTE | 2021-12-18 22:35 | XRay Report ---
XR ankle 3+V LT INDICATION / CLINICAL INFORMATION: Left ankle /foot pain COMPARISON: None available. AP, LATERAL, AND OBLIQUE VIEWS LEFT ANKLE FINDINGS: No fracture, dislocation, or significant soft tissue abnormality. IMPRESSION: 1. No significant abnormality of the left ankle. Signer Name: Omar Darling II, MD Signed: 12/18/2021 10:30 PM Workstation Name: [id number]
== END 2021-12-19 02:30 | disposition left against medical advice (07) ==
LOC: ED 20:51
DX: M79.672 Pain in left foot (principal); Z53.21 Procedure and treatment not carried out due to patient leaving prior to being seen by health care provider

== ENCOUNTER 2022-02-23 17:59 | Emergency (ER) | payer SELFPAY ==
[2022-02-23 20:27] VITALS: BP 132/81
== END 2022-02-24 03:45 | disposition left against medical advice (07) ==
LOC: ED 17:59
DX: R53.1 Weakness (principal); Z53.21 Procedure and treatment not carried out due to patient leaving prior to being seen by health care provider